=== PATIENT | female | born 1950 | race Caucasian/White ===

== ENCOUNTER → 2017-06-15 08:50 | Outpatient (CLI) | payer MEDICARE, OTHER ==
[2016-01-29 13:21] VITALS: BMI 49.9
[~2017-06-15 08:50] MED LIST: ACETAMINOPHEN500 M1 PO; ASPIRIN325 MG PO; BACTRIM DS TABL1 TAB PO; COUMADIN5 MG PO; CYMBALTA60 MG PO; DEMEROL50 MG PO; DIOVAN80 MG PO; EFFEXOR XR150 MG; EFFEXOR XR150 MG PO; FLAGYL500 MG PO; FLEXERIL10 MG PO; LASIX20 MG PO; LEVOTHROID25 MCG PO; MIRALAX17 GM PO; MULTI-DAY VITAM1 TAB PO; MYRBETRIQ; NEURONTIN 300300 MG PO; NORCO 10/325 TA1 TA1 PO; OXYCONTIN20 MG PO; PERCOCET 10/3251 TA1 PO; PHENERGAN25 M1 PO; PLAVIX75 MG PO; PRAVACHOL40 MG PO; PRILOSEC20 MG PO; PRINIVIL10 MG PO; TYLENOL 8 HOUR650 MG PO; VESICARE10 MG; VESICARE10 MG PO; ZOFRAN4 MG PO
== END | disposition home or self-care (01) ==
LOC: D.MRI 08:50
DX: M54.16 Radiculopathy, lumbar region (principal)

== ENCOUNTER 2017-12-09 10:35 | Outpatient (CLI) | payer MEDICARE, OTHER ==
[~2017-12-09] VITALS: Ht 162.6 cm; Wt 136.4 kg
--- NOTE | ~2017-12-09 | OP ---
PATIENT NAME: AGNES VALENTINE MEDICAL RECORD: [id number] :46 LOCATION:D.CAT ADMISSION DATE: SURGEON: DEMETRI CARRERA MD DATE OF OPERATION: 12/09/2017 PROCEDURE: Left heart catheterization, selective coronary angiography, stenting to the LAD, right femoral artery approach. CATHETERS: A 5-Yemeni sheath, 5/4 left and right Missael, 5/4 pig. The procedure was well tolerated. The patient returned to the armijo. Sheath removed. We proceeded immediately to PTCA stenting of the LAD. FINDINGS: Left ventriculography in the 30-degree HAYES view: Normal wall motion, normal systolic function. CORONARY ANATOMY. LEFT MAIN: Left main is free of disease. LAD: LAD distal to the previously placed stent has 2 sequential 90% stenosis. CIRCUMFLEX: Circumflex is free of disease. RIGHT CORONARY ARTERY: Right dominant system free of disease. IMPRESSION: Progression of [place] disease. PLAN: Intervention to the LAD momentarily. DESCRIPTION OF PROCEDURE: A 5-Yemeni sheath was exchanged for a 6-Yemeni sheath. EBU 3.5 guiding catheter provided good guide support followed by a 300 cm Whisper wire was placed across both stenosis in the LAD down this portion of vessel. Stent deployed was a 2.5 x 33 mm near medicated stent inflated to 14 atmospheres. Final angiography shows excellent resolution of both 90% stenosis, no significant residual. BEN flow was 3 throughout the procedure. Integrilin was used in the case. Sheath was closed. ExoSeal device was placed. TRANSINT:[id number] Voice Confirmation ID: [id number] DOCUMENT ID: [id number] DEMETRI CARRERA MD at 1214 CC: [id number] DICTATION DATE: 12/09/17 1343 ENVIRONMENTAL REMEDIATION SPECIALIST: 12/09/17 1359 DEP CLI 12/09/17 [place] [address]
--- NOTE | ~2017-12-09 | HEMODYNAMI ---
PATIENT:AGNES VALENTINE MEDICAL RECORD: [id number] : 46 LOCATION:DJUD ADMISSION DATE: 12/09/17 Generatedon:12/09/201713:44 Patient name: AGNES VALENTINE Patient #: [id number] SSN: : 1950 Date of study: 12/09/2017 Page: Of Hemodynamic Procedure Report Patient Data Patient Demographics Procedure consent was obtained First Name: AGNES Gender: Female Last Name: MEME : 1950 Middle Initial: BRAEDEN Age: 67 year(s) Patient #: [id number] Race: Additional ID: [id number] Contact details Address: [address] [place] [place] [facility] Zip code: [address] Past Medical History Allergies Allergen Reaction Date Comments Reported Other allergy 12/09/2017 STERI STRIP GLUE Admission Admission Data Admission Date: 12/09/2017 Admission Time: 10:35 Height (in.): 5.4 BSA: 0.39 (m2) Height (cm.): 13.72 BMI: 7329.67 (kg/m2) Weight (lbs.): 304 Weight (kg.): 137.89 Lab Results Lab Result Date: 12/09/2017 Lab Result Time: 0:00 Biochemistry Name Units Result Min Max BUN mg/dl 15 --(--*-)-- 7 18 Creatinine mg/dl 0.8 --(-*--)-- 0.6 1.3 CBC Name Units Result Min Max Hemoglobin g/dl 9.9 *-(----)-- 13.5 17.5 Procedure Procedure Types Cath Procedure Diagnostic Procedure [facility] w/Coronaries Sedation Charges Moderate Sedation up to 15 minutes PCI Procedure Coronary Stent Coronary Stent Initial Procedure Description Procedure Date Procedure Date: 12/09/2017 Procedure Start Time: 13:20 Procedure End Time: 13:42 Procedure Staff Name Function Ned Claudio MD Performing Physician Joelle Pinto RT Monitor Janes Cano RT Scrub Colleen Owen RN Nurse Procedure Data Cath Procedure Fluoroscopy Diagnostic fluoroscopy Total fluoroscopy Time: 2.5 time: 2.5 min min Diagnostic fluoroscopy Total fluoroscopy dose: 399 dose: 399 mGy mGy Contrast Material Contrast Material Type Amount (ml) Isovue 300 113 Entry Location Entry Primary Successful Side Size Upsize Upsize Entry Closure Succes sful Closure Location (Fr) 1 (Fr) 2 (Fr) Remarks Device Remarks Femoral Right 5 Fr 6 Fr Exoseal artery Short Estimated blood loss: 10 ml Diagnostic catheters Device Type Used For End Catheter Placement MULTIPACK JL 4.0 5Fr Procedure catheter MULTIPACK 3DRC 5Fr Procedure catheter MULTIPACK Pigtail 5 Fr Procedure catheter Procedure Complications No complications Procedure Medications Medication Administration Route Dosage Oxygen NC 2 l/min Lidocaine 2% added to field 20 Heparin Flush Bag added to field 2 bags (1000units/500ml NS) 0.9% NaCl I.V. 100 ml/hr Versed I.V. 2 mg Fentanyl I.V. 100 mcg Heparin Bolus I.V. 5000 units Integrilin (Bolus I.V. 11.3 ml 2mg/ml) Versed I.V. 1 mg Fentanyl I.V. 50 mcg Versed I.V. 1 mg Fentanyl I.V. 50 mcg Plavix P.O. 600 mg Hemodynamics Rest BSA: 0.39 (m2) HGB: 9.9 (g/dl) O2 Consumption: Estimated: 36.89 (ml/min) O2 Cons umption indexed: Estimated:94.59 (ml/min/m) Heart Rate: 76 (bpm) Pressure Samples Time Site Value (mmHg) Purpose Heart Use Rate(bpm) 13:26 LV 105/15,17 Snapshot 87 13:27 AO 121/48(76) Pullback 88 13:27 LV 96/18,12 Pullback 88 Gradients Valve Time Site 1 Site 2 Mean SEP/DFP Peak To Heart Use (mmHg) (sec/min) Peak Rate (mmHg) (bpm) Aortic 13:27 LV AO 0 18 0 88 96/18,12 121/48(76) Calculations Valve P-P Mean Valve Index Valve Source Name Gradient Area Flow (cm2) Aortic 0 0 0 0 Snapshots Pre Cath Intra NCS Post Cath Vital Signs Time Heart Resp SPO2 etCO2 NIBP (mmHg) Rhythm Pain Sedation Rate (ipm) (%) (mmHg) Status Level (bpm) 13:03:57 76 17 97 38.9 179/92(110) NSR 0 (11) 10(A) , No pain 13:08:21 87 25 94 24.6 107/85(96) NSR 0 (11) 10(A) , No pain 13:12:23 80 16 100 0 126/78(108) NSR 0 (11) 10(A) , No pain 13:16:31 83 14 100 30.6 140/80(104) NSR 0 (11) 9(A) , No pain 13:20:45 88 16 100 31.3 130/80(104) NSR 0 (11) 9(A) , No pain 13:24:53 82 14 99 1.4 116/67(90) NSR 0 (11) 9(A) , No pain 13:29:03 90 14 99 43.3 115/66(94) NSR 0 (11) 9(A) , No pain 13:33:13 89 14 100 42.6 117/64(88) NSR 0 (11) 10(A) , No pain 13:37:16 90 15 100 43.3 134/80(103) NSR 0 (11) 10(A) , No pain 13:41:26 91 16 100 0 151/84(106) NSR 0 (11) 10(A) , No pain Medications Time Medication Route Dose Verified Delivered Reason Notes Effectiveness by by 13:09:17 Oxygen NC 2 Ned Heatherie used for l/min [facility] Efrain borden MD 13:09:34 Lidocaine 2% added 20ml Ned Portilloory for local to vial [facility] anesthetic field MD MORALEZ 13:09:39 Heparin Flush added 2 Ned Ned used for Bag to bags [facility] procedure (1000units/500ml field MD MORALEZ NS) 13:09:50 0.9% NaCl I.V. 100 Ned Macias Per physician ml/hr St Efrain Owen RN, MD 13:10:00 Versed I.V. 2 mg Ned Heatherie for sedation St Efrain Owen RN, MD 13:10:11 Fentanyl I.V. 100 Ned Heatherie for sedation mcg St Efrain Owen RN, MD 13:20:18 Versed I.V. 1 mg Ned Romeroie for sedation St Efrain Owen RN, MD 13:20:23 Fentanyl I.V. 50 Ned Romeroie for sedation mcg St Efrain Owen RN, MD 13:28:24 Heparin Bolus I.V. 5000 Ned Macias for verifi ed units St Efrain Owen RN anticoagulation with dr MD inman 13:30:34 Integrilin I.V. 11.3 Ned Macias for wasted (Bolus 2mg/ml) ml St Efrain Owen RN antiplatelet 8.7 ml therapy of vial 13:35:37 Versed I.V. 1 mg Ned Macias for sedation St Efrain Owen RN, MD 13:35:41 Fentanyl I.V. 50 Ned Macias for sedation mcg St Efrain Owen RN, MD 13:39:28 Plavix P.O. 600 Ned Mac[address] for mg [facility] Efrain Owen RN antiplatelet therapy Procedure Log Time Note 12:36:02 Signed procedure consent form obtained from patient. 12:38:59 H&P Date Dictated: 12/03/2017 Within 30 days and on chart., H&P Addendum completed by physician on day of procedure. (MUST COMPLETE FOR ALL OUTPATIENTS). 12:39:11 Patient Height : 5.4 inches 12:39:16 Patient Weight : 304 lbs 12:41:42 Lab Result : Creatinine 0.8 mg/dl 12:41:42 Lab Result : BUN 15 mg/dl 12:41:42 Lab Result : Hemoglobin 9.9 g/dl 12:46:39 Joelle Pinto RT(R) sent for patient. Start room use. 12:53:36 Time tracking: Regular hours 12:53:40 Plan of Care:Hemodynamics will remain stable., Cardiac rhythm will remain stable., Comfort level will be maintained., Respiratory function will remain adequate., Patient/ family verbilizes understanding of procedure., Procedure tolerated without complication., Recovers from procedure without complications.. 12:53:46 Patient received from Pre/Post Procedure Room to [facility] 3 Alert and oriented. Tansferred to table in Supine position. 12:53:47 Warm blankets applied, and ricardo hugger turned on for patient comfort. 12:53:48 Correct patient and procedure confirmed by team. 12:53:48 ECG and BP/O2 sat monitors applied to patient. 13:02:49 Vital chart was started 13:02:50 Baseline sample Acquired. 13:02:54 Rhythm: sinus rhythm 13:02:55 Full Disclosure recording started 13:02:55 Pre-procedure instructions explained to patient. 13:02:56 Pre-op teaching completed and patient verbalized understanding. 13:02:57 Family in patients room. 13:02:59 Patient NPO since Midnight. 13:03:11 Patient allergic to Other allergySTERI STRIP GLUE 13:03:13 Is the patient allergic to Iodine/contrast media? No. 13:03:16 Is patient on blood thinner?No 13:03:18 Patient diabetic? No. 13:03:20 Patient not . Patient is over age 55. 13:03:25 Previous problem with sedation/anesthesia? No ? 13:03:27 Snore? Yes 13:03:28 Sleep apnea? No 13:03:29 Deviated septum? No 13:03:37 Opens mouth fully? Yes 13:03:38 Sticks out tongue? Yes 13:03:39 Airway obstruction? No ? 13:03:41 Dentures? No ? 13:03:44 Pre procedure: right dorsailis pedis pulse 2+ Normal; easily identifiable; not easily obliterated 13:03:52 Patient pain scale 2/10 ?. 13:03:58 IV patent on arrival in left hand with 0.9% NaCl at O. 13:04:02 Lab results completed and on chart. 13:04:06 Right groin area was prepped with chlora-prep and draped in sterile fashion 13:04:07 Alarms reviewed by R. N. 13:04:08 Sharps counted by scrub and verified by R.N. 13:04:09 --------ALL STOP TIME OUT------ 13:04:09 Final Timeout: patient, procedure, and site verified with staff and physician. All members of the team are in agreement. 13:04:15 Right groin site verified by team. 13:04:19 Physical assessment completed. ASA score P 2 - A patient with mild systemic disease as per Ned Claudio MD. 13:04:24 Sedation plan: IV Moderate Sedation Medication:Versed, Fentanyl 13:04:31 Use device set Femoral Dx 13:04:32 ACIST Syringe (51624) opened to sterile field. 13:04:33 Bag Decanter (2001S) opened to sterile field. 13:04:34 ACIST Manifold (06748) opened to sterile field. 13:04:35 ACIST Hand Control (87458) opened to sterile field. 13:04:36 Tegaderm 4 x 4 (1626W) opened to sterile field. 13:04:39 Medline Cath Pack ([id number]) opened to sterile field. 13:04:39 SHEATH 5FR Andale (DEY895) opened to sterile field. 13:04:40 DIAGNOSTIC WIRE .035 260cm J wire (826526) opened to sterile field. 13:04:42 PERCUTANEOUS ENTRY 19GA needle opened to sterile field. 13:04:43 DIAGNOSTIC Multipack 5Fr catheter set (CD3376) opened to sterile field. 13:09:17 Oxygen 2 l/min NC was administered by Colleen Owen RN; used for procedure; 13::34 Lidocaine 2% 20ml vial added to field was administered by Ned Claudio MD; for local anesthetic; 13:09:39 Heparin Flush Bag (1000units/500ml NS) 2 bags added to field was administered by Ned Claudio MD; used for procedure; 13:09:50 0.9% NaCl 100 ml/hr I.V. was administered by Colleen Owen RN; Per physician; 13:10:00 Versed 2 mg I.V. was administered by Colleen Owen RN; for sedation; 13:10:11 Fentanyl 100 mcg I.V. was administered by Colleen Owen RN; for sedation; 13:12:29 Zero performed for pressure channel P1 13:19:37 Procedure started. 13:20:05 Local anesthetic to right femoral artery with Lidocaine 2% by Ned Claudio MD.INITIAL ACCESS ONLY 13:20:18 Versed 1 mg I.V. was administered by Colleen Owen RN; for sedation; 13:20:23 Fentanyl 50 mcg I.V. was administered by Colleen Owen RN; for sedation; 13:21:43 A 5 Fr sheath was inserted into the Right Femoral artery 13:22:18 A MULTIPACK JL 4.0 5Fr catheter was advanced over the wire and used for Procedure. 13:23:47 LCA angiography performed. 13:23:48 Catheter removed. 13:24:03 A MULTIPACK 3DRC 5Fr catheter was advanced over the wire and used for Procedure. 13:25:01 RCA angiography performed. 13:25:07 Catheter removed. 13:25:15 A MULTIPACK Pigtail 5 Fr catheter was advanced over the wire and used for Procedure. 13::57 LV gram done using HAYES 13::03 Injector settings: Ml/sec: 10, Volume: 20, 13::38 LV hemodynamics recorded. 13::49 EF : 55 % 13::52 Catheter removed. 13:27:17 SHEATH 6FR Andale (VTL999) opened to sterile field. 13:27:21 INFLATOR Merit BasixCompak (MV6396) opened to sterile field. 13:27:29 WHISPER 300cm guide wire ([id number]) opened to sterile field. 13:27:46 Sheath upsized to a 6 Fr Short. 13:28:24 Heparin Bolus 5000 units I.V. was administered by Colleen Owen RN; for anticoagulation; verified with dr inman 13::25 GUIDE 6FR EBU 3.5 catheter ([id number]) opened to sterile field. 13:28:25 6 Fr EBU 3.5 guide catheter was inserted over the wire 13:30:34 Integrilin (Bolus 2mg/ml) 11.3 ml I.V. was administered by Colleen Owen RN; for antiplatelet therapy; wasted 8.7 ml of vial 13:31:17 WHISPER 300 wire advanced. 13:: Inflation Number: 1 A ELUNIR 2.5 x 33 stent ([id number]) was prepped and advanced across the Mid LAD. The stent was deployed at 12 NELLY for 0:30 (min:sec). 13:35:37 Versed 1 mg I.V. was administered by Colleen Owen RN; for sedation; ::41 Fentanyl 50 mcg I.V. was administered by Colleen Owen RN; for sedation; 13:35:49 Stent catheter was removed intact over wire. 13:35:50 Wire removed. 13:35:50 Guide catheter removed. 13:36:09 EXOSEAL 6Fr (EX600) opened to sterile field. 13:36:27 Sheath removed intact; hemostasis achieved with Exoseal to the Right Femoral artery. 13:37:23 Procedure ended.(Physican Out) :37:27 Fluoroscopy time 02.50 minutes. 13:37:34 Flurop Dose total: 399 13:37:34 Fluoroscopy dose: 399 mGy 13:37:41 Contrast amount:Isovue 300 113ml. 13:37:43 Sharps counted by scrub and verified by R.N. 13:38:39 Insertion/operative site no bleeding no hematoma. 13:38:43 Post procedure: right dorsailis pedis pulse 2+ Normal; easily identifiable; not easily obliterated. 13:38:45 Post-procedure physical assessment completed. ASA score P 2 - A patient with mild systemic disease as per Ned Claudio MD. 13:38:53 Post procedure rhythm: unchanged. 13:38:55 Estimated blood loss: 10 ml 13:38:56 Post procedure instruction explained to patient.Patient verbalizes understanding. 13:38:57 Patient needs reinforcement of post procedure teaching. 13:39:06 Procedure type changed to Cath procedure, Diagnostic procedure, LHC, LHC w/Coronaries, Sedation Charges, Moderate Sedation up to 15 minutes, PCI procedure, Coronary Stent, Coronary Stent Initial 13:39:28 Plavix 600 mg P.O. was administered by Colleen Owen RN; for antiplatelet therapy; 13:42:37 Procedure and supply charges have been captured, reviewed, submitted and are correct. 13:42:40 Procedure Complication : No complications 13:42:41 Vital chart was stopped 13:42:42 See physician's report for complete and final results. 13:42:46 Report given to Pre/Post Procedure Room. 13:42:49 Patient transfered to Pre/Post Procedure Room with Bed. 13:42:52 Procedure ended. 13:42:52 Full Disclosure recording stopped 13:42:55 End room use (Document Last) Intervention Summary Intervention Notes Time ActionType Lesion and Equipment Action# Pressure Duration Attributes Used 13:35:27 Place stent Mid LAD ELUNIR 2.5 x 1 12 00:30 33 stent ([id number]) Device Usage Item Name Manufacture Quantity Catalog Hospital Part Current Minim al Lot# / Number Charge Number Stock Stock Serial# Code ACIST Syringe Acist 1 42635 639719 922227 414844 20 (75223) Medical Systems Inc Bag Decanter Microtek 1 2001S 287982 73899 746324 5 () Medical Inc. ACIST Acist 1 00717 026520 695243 309998 5 Manifold Medical (37155) Systems Inc ACIST Hand Acist 1 80438 032376 917724 446623 5 Control Medical (07662) Systems Inc Tegaderm 4 x 3M 1 1626W 375446 015820 024276 5 4 (1626W) Medline Cath Cardinal 1 [id number] 323961 81624 960110 5 Pack Health ([id number]) SHEATH 5FR Terumo 1 RSO631 453177 232724 975411 40 Andale (VPM247) DIAGNOSTIC St Shon 1 929150 301916 971505 939830 30 WIRE .035 260cm J wire (820971) PERCUTANEOUS [facility] 1 H28624 368859 337128 5 ENTRY 19GA needle DIAGNOSTIC Cardinal 1 XG9859 319042 77966 502034 30 Multipack 5Fr Health catheter set (PP8381) MULTIPACK JL Cardinal 1 251288 5 4.0 5Fr Health catheter MULTIPACK Cardinal 1 568355 5 3DRC 5Fr Health catheter MULTIPACK Cardinal 1 687738 5 Pigtail 5 Fr Health catheter SHEATH 6FR Terumo 1 CFW457 479878 042752 766936 40 Andale (EPM225) INFLATOR Merit 1 RV0229 635592 777846 939839 [address] [facility] BasixCompak (WW7422) WHISPER 300cm Cat 1 [id number] 652098 778381 563428 5 guide wire Vascular ([id number]) ELUNIR 2.5 x Cardinal 1 [id number] 745152 596186 877815 5 [id number] 33 stent Health ([id number]) EXOSEAL 6Fr Cardinal 1 EX600 969487 863352 038996 10 (EX600) Health GUIDE 6FR EBU Medtronic 1 [id number] 549345 82087 651952 3 3.5 catheter (BR9QUC88) Signature Audit [place] Stage Time Signature Unsigned Intra-Procedure 12/09/2017 Joelle Pinto 1:44:51 PM RT(R) Signatures Monitor : Joelle Pinto Signature : RT Date : Time : [facility] [address] [place] [address]
[2017-12-09] MEDS ORDERED: TEMAZEPAM30 MG PO (11:01)
[2017-12-09] MEDS ORDERED: HYDROCODONE-APA1 TAB PO (11:09)
[2017-12-09 11:11] VITALS: Ht 162.6 cm; Wt 136.4 kg
[2017-12-09 11:38] LABS: BASOPHILS 0.1 % (0-2); EOSINOPHILS 2.8 % (0-7); HEMATOCRIT 33.7 % (36.0-48.0); HEMOGLOBIN 9.9 g/dL (12-16); IMMATURE GRANULOCYTES 0.1 % (0-5); LYMPHOCYTES 32.4 % (15-50); MCH 23.9 pg (26.0-34.0); MCHC 29.4 g/dL (31.0-37.0); MCV 81.2 fL (80.0-100.0); MEAN PLATELET VOLUME 9.6 fL (7.4-10.4); MONOCYTES 9.4 % (2-11); NEUTROPHILS 55.2 % (40-80); RBC 4.15 10x6/uL (4.00-5.40); RDW 15.3 % (11.5-14.5); WBC 6.9 10x3/uL (4.8-10.8)
[2017-12-09 11:41] LABS: PLATELET COUNT 280 10x3/uL (130-400)
[2017-12-09 11:50] LABS: CALC OSMOLALITY 279 mosm/kg (275-300); CALCIUM 9.2 mg/dL (8.5-10.1); CARBON DIOXIDE 27.3 mmol/L (21.0-32.0); CHLORIDE - SERUM 104 mmol/L (98-107); CREATININE - SERUM 0.8 mg/dL (0.6-1.3); GLUCOSE 101 mg/dL (74-106); POTASSIUM - SERUM 4.4 mmol/L (3.5-5.1); SODIUM 140 mmol/L (136-145); UREA NITROGEN 15 mg/dL (7-18); eGFR NON AFRICAN AMERICAN 75 mL/min (90-120)
[2017-12-09] MEDS ORDERED: PLAVIX75 MG PO (14:25)
[2017-12-09] MEDS ORDERED: BAYER CHEWABLE81 MG PO (14:26)
== END 2017-12-09 18:00 | disposition home or self-care (01) ==
LOC: D.CATH 10:35
PROVIDERS: Internal Medicine Interventional Cardiology
DX: I25.119 Atherosclerotic heart disease of native coronary artery with unspecified angina pectoris (principal); Z01.812 Encounter for preprocedural laboratory examination
CPT/HCPCS: 93458; C9600

== ENCOUNTER 2018-12-07 15:19 | Inpatient (IN) | payer MEDICARE, OTHER ==
[~2018-12-07] VITALS: Ht 162.6 cm; Wt 128.8 kg
[~2018-12-07 15:19] MED LIST changes: +BAYER CHEWABLE81 MG PO; +HYDROCODONE-APA1 TAB PO; +TEMAZEPAM30 MG PO
[2018-12-07] MEDS ORDERED: DESMOPRESSIN A0.2 MG PO (16:02)
[2018-12-07] MEDS ORDERED: VOLTAREN100 GM TOPICAL (16:03)
[2018-12-07] MEDS ORDERED: CYMBALTA60 MG PO (16:07)
[2018-12-07 16:36] LABS: BASOPHILS 0.3 % (0-2); EOSINOPHILS 1.8 % (0-7); HEMATOCRIT 38.9 % (36.0-48.0); HEMOGLOBIN 12.7 g/dL (12-16); IMMATURE GRANULOCYTES 0.1 % (0-5); MCH 29.1 pg (26.0-34.0); MCHC 32.6 g/dL (31.0-37.0); MCV 89.2 fL (80.0-100.0); MEAN PLATELET VOLUME 9.2 fL (7.4-10.4); MONOCYTES 6.8 % (2-11); RBC 4.36 10x6/uL (4.00-5.40); RDW 13.9 % (11.5-14.5)
[2018-12-07 16:41] LABS: PLATELET COUNT 198 10x3/uL (130-400)
[2018-12-07 16:45] LABS: ANION GAP 14.9 mmol/L (8-16); CALCIUM 9.3 mg/dL (8.5-10.1); CARBON DIOXIDE 26.5 mmol/L (21.0-32.0); CREATININE - SERUM 0.9 mg/dL (0.6-1.3); POTASSIUM - SERUM 4.4 mmol/L (3.5-5.1)
[2018-12-07 17:50] LABS: ERYTHROCYTE SEDIMENTATION RATE 30 mm/hr (0-30)
--- NOTE | 2018-12-07 18:38 | NUR ---
20G PIV SITED TO RIGHT FOREARM BY YOLANDA MAYS AFTER 2 ATTEMPTS BY OTHER NURSES.
[2018-12-07 18:53] VITALS: BP 122/56; BMI 48.8
--- NOTE | 2018-12-07 20:30 | NUR ---
PT RESTING IN BED. ALERT AND ORIENTED. NO SIGNS OF DISTRESS. BREATHING EVEN AND UNLABORED. PT STATES NO PROBLEMS AT THIS TIME. IV SITE RT FA DRESSING CLEAN DRY AND ITNACT. NO SIGNS OF INFECTION. BOWEL SOUNDS ACTIVE. BOTH LOWER LEGS SWELLING PRESENT. WILL CONTINUE PLAN OF CARE. CALL LIGHT IN REACH. BED LOWERED AND LOCKED. BED RAILS UP X2.
[2018-12-07 20:54] VITALS: BP 122/53
[2018-12-08 05:01] VITALS: BP 125/63
--- NOTE | 2018-12-08 05:28 | NUR ---
PT IN BED IN LOW FOWLERS POSIITON. RESPIRATIONS EVEN AND UNLABORED NO VISUAL CUES OF DISTRESS NOTED. DENIES ANY OTHER NEEDS AT THIS TIME. BED LOW, SIDE RAILS UP X2. CALL LIGHTI IN [facility]. WILL CONTINUE TO MONITOR.
[2018-12-08 08:18] VITALS: BP 137/65
[2018-12-08 09:31] LABS: BASOPHILS 0.2 % (0-2); EOSINOPHILS 1.5 % (0-7); HEMATOCRIT 38.1 % (36.0-48.0); LYMPHOCYTES 30.1 % (15-50); MCH 28.6 pg (26.0-34.0); MCHC 31.5 g/dL (31.0-37.0); MCV 90.7 fL (80.0-100.0); MEAN PLATELET VOLUME 9.5 fL (7.4-10.4); MONOCYTES 8.3 % (2-11); NEUTROPHILS 59.9 % (40-80); PLATELET COUNT 195 10x3/uL (130-400); RDW 14.2 % (11.5-14.5)
[2018-12-08 09:39] LABS: WBC 4.8 10x3/uL (4.8-10.8)
[2018-12-08 09:52] LABS: CALC OSMOLALITY 267 mosm/kg (275-300); CARBON DIOXIDE 25.7 mmol/L (21.0-32.0); CHLORIDE - SERUM 100 mmol/L (98-107); CREATININE - SERUM 0.8 mg/dL (0.6-1.3); GLUCOSE 105 mg/dL (74-106); POTASSIUM - SERUM 4.2 mmol/L (3.5-5.1); SODIUM 134 mmol/L (136-145); UREA NITROGEN 12 mg/dL (7-18); eGFR NON AFRICAN AMERICAN 75 mL/min (90-120)
--- NOTE | 2018-12-08 12:13 | NUR ---
I have reviewed this patient and I concur with the Shift Assessment completed by the Licensed Practical Nurse today this shift.
[2018-12-08 12:19] VITALS: BP 123/67
[2018-12-08 12:34] VITALS: BMI 48.7
[2018-12-08 19:13] LABS: APPEARANCE CLEAR (CLEAR); BILIRUBIN NEGATIVE (NEGATIVE); COLOR YELLOW (YELLOW); GLUCOSE NEGATIVE (NEGATIVE); KETONE NEGATIVE (NEGATIVE); NITRITE NEGATIVE (NEGATIVE); PROTEIN NEGATIVE (NEGATIVE); UROBILINOGEN NORMAL (NORMAL)
--- NOTE | 2018-12-08 20:00 | NUR ---
ASSESSMENT PER FLOWSHEET. DRESG TO RT KNEE C/D/I LEFT KNEE WITH SORES AND SCABS NO DRAINAGE. IV PATENT RT FOREARM OF NS AT 10CC'S/HR. FAMILY MEMBERS AT BEDSIDE.
[2018-12-08 20:10] VITALS: BP 133/55
--- NOTE | 2018-12-08 21:45 | NUR ---
MEDS GIVEN PER NOV. UP WITH STANDBY ASSIST TO BR VOIDS WELL ASSISTED BACK TO BED. SR UP X2 CALL LIGHT WITHIN REACH MATT BED ALARM ACTIVATED.
--- NOTE | 2018-12-09 00:54 | NUR ---
EYES CLOSED RESPIRATIONS WITH EASE AND UNLABORED.
[2018-12-09 04:45] VITALS: BP 109/60
[2018-12-09 05:21] LABS: BASOPHILS 0.2 % (0-2); EOSINOPHILS 2.1 % (0-7); HEMATOCRIT 38.6 % (36.0-48.0); HEMOGLOBIN 12.2 g/dL (12-16); LYMPHOCYTES 24.7 % (15-50); MCH 28.4 pg (26.0-34.0); MCHC 31.6 g/dL (31.0-37.0); MEAN PLATELET VOLUME 9.2 fL (7.4-10.4); MONOCYTES 8.8 % (2-11); NEUTROPHILS 64.2 % (40-80); PLATELET COUNT 175 10x3/uL (130-400); RBC 4.29 10x6/uL (4.00-5.40); RDW 14.2 % (11.5-14.5); WBC 4.2 10x3/uL (4.8-10.8)
[2018-12-09 05:30] LABS: ANION GAP 11.4 mmol/L (8-16); CARBON DIOXIDE 30.5 mmol/L (21.0-32.0); CREATININE - SERUM 0.9 mg/dL (0.6-1.3); POTASSIUM - SERUM 3.9 mmol/L (3.5-5.1)
--- NOTE | 2018-12-09 07:25 | NUR ---
PT ALERT AND ORIENTED. RESTING IN BED EYES OPEN. NO C/O PAIN. NO S/S OF ACUTE DISTRESS NOTED. UP AD ZHANG. DRSG TO RIGHT KNEE, C/D/I. FALL PRECAUTION, MATT ALARM ON AND WORKING. SCDS PRESENT, OFF RIGHT NOW. IV TO RIGHT FOREARM, NS INFUSING @ 20ML/HR. SITE PATENT WITHOUT REDNESS OR SWELLING. PT DENIES ANYTHING FURTHER AT THIS TIME. CALL LIGHT IN REACH. WILL CONTINUE TO MONITOR.
[2018-12-09 09:23] VITALS: BP 122/52
[2018-12-09 10:41] LABS: MACROPHAGES BF 10 %; NEUT - BF 86 %
[2018-12-09 11:08] LABS: BASOPHILS 0.2 % (0-2); EOSINOPHILS 2.6 % (0-7); HEMATOCRIT 37.9 % (36.0-48.0); HEMOGLOBIN 12.1 g/dL (12-16); IMMATURE GRANULOCYTES 0.2 % (0-5); LYMPHOCYTES 18.9 % (15-50); MCH 28.8 pg (26.0-34.0); MCHC 31.9 g/dL (31.0-37.0); MCV 90.2 fL (80.0-100.0); MEAN PLATELET VOLUME 9.2 fL (7.4-10.4); MONOCYTES 10.4 % (2-11); NEUTROPHILS 67.7 % (40-80); PLATELET COUNT 178 10x3/uL (130-400); RDW 14.4 % (11.5-14.5); WBC 4.5 10x3/uL (4.8-10.8)
[2018-12-09 12:22] VITALS: BP 128/41
--- NOTE | 2018-12-09 14:26 | MORECARE ---
CASE MANAGEMENT DISCHARGE SUMMARY PATIENT: AGNES VALENTINE UNIT: [id number] ADM DATE: 12/08/18 AGE: 68 : 48 SEX: F ROOM/BED: D.2217 AUTHOR: KASHIF,DOC PHYSICIAN: REFERRING PHYSICIAN: SCOTTIE WRIGHT MD DATE OF SERVICE: 12/09/18 Discharge Plan Patient Name: AGNES VALENTINE Facility: [facility]:[place] : 1950 Planned Disposition: Home Anticipated Discharge Date: Discharge Date: Expected LOS: Initial Reviewer: [email or web address] Initial Review Date: 12/07/2018 Generated: 12/09/18 3:26 pm Comments DCP- Discharge Planning Updated by [email or web address]: Mirtha Powers on 12/09/18 1:[address] Patient Name: AGNES VALENTINE Admission Status: Elective Accout number: [id number] Admission Date: 12-08-2018 : 1950 Admission Diagnosis: Attending: SCOTTIE WRIGHT Current LOS: 1 Anticipated DC Date: Planned Disposition: Home Primary Insurance: MEDICARE A & B Discharge Planning Comments: CM met with patient to complete initial dc planning assessment. CM educated patient on the CM role and verbal consent given by patient to complete assessment. Patient lives at home where she is independent with her care . At discharge patient plans to return home and feels this is a safe discharge. 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 CM discussed availability of home health, rehab services, and medical equipment. She has a cane, multiple walkers, shower chair, and bedside commode. Patient denied known discharge needs at this time. CM will continue to follow and will assist as needed with dc plans/needs. Stable Helper: Mirtha Powers DCPIA - Discharge Planning Initial Assessment Updated by [email or web address]: Mirtha Powers on 12/09/18 2:18 pm * Is the patient Alert and Oriented? Yes * How many steps to enter\exit or inside your home? RAMP/6 * PCP KYLE * [facility] * Preadmission Environment Home Alone * ADLs Independent * Equipment Bedside Commode Cane Rolling Walker Shower Chair * List name and contact numbers for known caregivers / representatives who currently or will assist patient after discharge: TOSHIA VALENTINE (SON) [phone] * Verbal permission to speak to the caregivers and representatives has been obtained from the patient. Yes * Community resources currently utilized None * Additional services required to return to the preadmission environment? No * Can the patient safely return to the preadmission environment? Yes * Has this patient been hospitalized within the prior 30 days at any hospital? No Patient Name: AGNES VALENTINE Page [phone] at 1426 All edits/amendments must be made on the electronic document DICTATION DATE: 12/09/181425 EVENT MGR: ANNY 12/09/181425 RPT#: [id number] DC DATE: STATUS: ADM IN [facility] [address] [place] [address] END OF REPORT
[2018-12-09 15:40] LABS: ERYTHROCYTE SEDIMENTATION RATE 45 mm/hr (0-30)
[2018-12-09 17:53] VITALS: BP 106/66
--- NOTE | 2018-12-09 18:27 | NUR ---
I have reviewed this patient and I concur with the Shift Assessment completed by the Licensed Practical Nurse today this shift.
--- NOTE | 2018-12-09 18:28 | NUR ---
PT RESTING IN BED, EATING DINNER. NO C/O PAIN. NO S/S OF ACUTE DISTRESS NOTED. CALL LIGHT IN REACH. PT DENIES ANYTHING FURTHER AT THIS TIME. WILL CONTINUE TO MONITOR.
[2018-12-09 21:57] VITALS: BP 128/66
[2018-12-10] VITALS (7 sets, daily range): BP systolic 106–146; BP diastolic 37–83; Ht 162.6 cm; Wt 128.8 kg
[2018-12-10 04:08] LABS: ANION GAP 11.5 mmol/L (8-16); CALCIUM 8.5 mg/dL (8.5-10.1); CARBON DIOXIDE 29.1 mmol/L (21.0-32.0); CREATININE - SERUM 0.9 mg/dL (0.6-1.3); POTASSIUM - SERUM 3.6 mmol/L (3.5-5.1)
[2018-12-10 04:11] LABS: BASOPHILS 0.3 % (0-2); EOSINOPHILS 3.3 % (0-7); HEMATOCRIT 36.2 % (36.0-48.0); HEMOGLOBIN 11.7 g/dL (12-16); LYMPHOCYTES 29.3 % (15-50); MCH 28.7 pg (26.0-34.0); MCHC 32.3 g/dL (31.0-37.0); MCV 88.9 fL (80.0-100.0); MEAN PLATELET VOLUME 9.1 fL (7.4-10.4); MONOCYTES 9.3 % (2-11); NEUTROPHILS 57.8 % (40-80); PLATELET COUNT 169 10x3/uL (130-400); RBC 4.07 10x6/uL (4.00-5.40); RDW 14.2 % (11.5-14.5)
--- NOTE | 2018-12-10 07:32 | NUR ---
PT AWAKE AND ORIENTED. TALKING ON PHONE, VERY PLESANT. NO CONCNERS/COMPLAINTS/QUESTIONS VOICED AT THIS TIME. CL IN REACH. SRX2.
--- NOTE | 2018-12-10 18:47 | NUR ---
PT LYING IN BED, NO XOMPLAINTS OR CONCERNS VOICED AT THIS TIME. CL IN REACH. SRX2.
[2018-12-11 04:00] VITALS: BP 137/48
[2018-12-11 06:51] LABS: ANION GAP 14.7 mmol/L (8-16); CALCIUM 8.2 mg/dL (8.5-10.1); CARBON DIOXIDE 25.8 mmol/L (21.0-32.0); CREATININE - SERUM 0.9 mg/dL (0.6-1.3)
[2018-12-11 06:52] LABS: POTASSIUM - SERUM 4.5 mmol/L (3.5-5.1)
[2018-12-11 07:29] LABS: BASOPHILS 0.3 % (0-2); EOSINOPHILS 3.4 % (0-7); HEMATOCRIT 35.9 % (36.0-48.0); HEMOGLOBIN 11.4 g/dL (12-16); IMMATURE GRANULOCYTES 0.3 % (0-5); LYMPHOCYTES 24.6 % (15-50); MCH 28.5 pg (26.0-34.0); MCHC 31.8 g/dL (31.0-37.0); MCV 89.8 fL (80.0-100.0); MEAN PLATELET VOLUME 9.1 fL (7.4-10.4); NEUTROPHILS 61.4 % (40-80); PLATELET COUNT 152 10x3/uL (130-400); RDW 14.1 % (11.5-14.5); WBC 3.5 10x3/uL (4.8-10.8)
--- NOTE | 2018-12-11 07:46 | NUR ---
PT IS RESTING IN BED WITH EYES OPEN. RESPIRATIONS ARE EVEN AND UNLABORED. PT DENIES PRESENCE OF PAIN AT THIS TIME. PT DENIES PRESENCE OF N/V AT THIS TIME. RIGHT LOWER EXTREMITY DRESSING NOTED AND IS C/D/I. BED IS IN THE LOWEST POSITION. CALL LIGHT AND BEDSIDE TABLE ARE WITHIN REACH. WILL CONT TO MONITOR.
[2018-12-11 07:56] VITALS: BP 109/50
[2018-12-11 09:51] VITALS: BP 139/62
[2018-12-11 12:49] VITALS: BP 111/44
--- NOTE | 2018-12-11 14:35 | NUR ---
PT AMBULATES WITH WALKER 250 FT WITHOUT DIFFICULTY. PT DENIES PRESENCE OF SOB, DIZZINESS, LIGHTHEADEDNESS. PT ASSISTED WITH AMBULATION BY WALKER. PT REQUESTS TO SIT IN BEDSIDE CHAIR. PT IS ASSISTED TO BEDSIDE CHAIR POST AMBULATION. CALL LIGHT AND BEDSIDE TABLE ARE WITHIN REACH. PT DENIES PRESENCE OF PAIN. PT DENIES PRESENCE OF N/V AT THIS TIME. WILL CONT TO MONITOR.
[2018-12-11 16:17] VITALS: BP 119/59
--- NOTE | 2018-12-11 18:02 | NUR ---
PIV REMOVED FROM LEFT WRIST/FOREARM. PT C/O BURNING WITH INFUSION. REDNESS NOTED. PIV REMOVED WITH CATHETER TIP INTACT.
--- NOTE | 2018-12-11 20:00 | NUR ---
RESTING IN BED, NO APPARENT DISTRESS, NO IV ACCESS AT THIS TIME HAD MULTIPLE ATTEMPTS, AWAITING VASCULAR ACCESS NURSE, CALL LIGHT IN REACH
[2018-12-11 20:02] VITALS: BP 122/35
[2018-12-12 00:49] VITALS: BP 146/59
--- NOTE | 2018-12-12 01:50 | NUR ---
IV ACCESS NURSE STARTED IV LEFT THUMB, VANCOMYCIN STARTED AT THIS TIMES PREVIOUS DOSE WAS NOT GIVEN DUE TO NO IV ACCESS
[2018-12-12 06:38] LABS: BASOPHILS 0.3 % (0-2); EOSINOPHILS 3.9 % (0-7); HEMATOCRIT 36.2 % (36.0-48.0); HEMOGLOBIN 11.4 g/dL (12-16); IMMATURE GRANULOCYTES 0.3 % (0-5); LYMPHOCYTES 29.5 % (15-50); MCH 28.6 pg (26.0-34.0); MCHC 31.5 g/dL (31.0-37.0); MCV 90.7 fL (80.0-100.0); MEAN PLATELET VOLUME 9.7 fL (7.4-10.4); MONOCYTES 13.2 % (2-11); NEUTROPHILS 52.8 % (40-80); RBC 3.99 10x6/uL (4.00-5.40); RDW 14.2 % (11.5-14.5); WBC 3.6 10x3/uL (4.8-10.8)
[2018-12-12 06:44] LABS: ANION GAP 14.5 mmol/L (8-16); CALCIUM 8.4 mg/dL (8.5-10.1); CARBON DIOXIDE 24.4 mmol/L (21.0-32.0); CREATININE - SERUM 0.9 mg/dL (0.6-1.3); POTASSIUM - SERUM 3.9 mmol/L (3.5-5.1)
[2018-12-12 06:49] LABS: PLATELET COUNT 113 10x3/uL (130-400)
[2018-12-12 08:38] VITALS: BP 126/43
[2018-12-12 12:25] VITALS: BP 101/46
--- NOTE | 2018-12-12 13:19 | NUR ---
PT IS RESTING IN BED WITH EYES OPEN. RESPIRATIONS ARE EVEN AND UNLABORED. DRESSING TO RIGHT LOWER EXTREMITY NOTED AND IS C/D/I. PT REPORTS SLIGHT PAIN, BUT DENIES NEEDS AT THIS TIME. PT IS AAOX4. BED IS IN THE LOWEST POSITION. CALL LIGHT AND BEDSIDE TABLE ARE WITHIN REACH. WILL CONT TO MONITOR.
[2018-12-12 17:10] VITALS: BP 128/60
[2018-12-12 19:55] VITALS: BP 110/54
--- NOTE | 2018-12-12 20:00 | NUR ---
RESTIING IN BED AROUSED EASILY, SEE SHIFT ASSESSMENT, DENIES NEEDS AT THIS TIME, CALL LIGHT IN REACH
[2018-12-13 05:11] VITALS: BP 120/60
[2018-12-13 05:17] LABS: BASOPHILS 0.7 % (0-2); EOSINOPHILS 5.2 % (0-7); HEMATOCRIT 35.3 % (36.0-48.0); IMMATURE GRANULOCYTES 0.2 % (0-5); LYMPHOCYTES 32.4 % (15-50); MCH 28.3 pg (26.0-34.0); MCHC 31.2 g/dL (31.0-37.0); MCV 90.7 fL (80.0-100.0); MEAN PLATELET VOLUME 9.2 fL (7.4-10.4); MONOCYTES 10.4 % (2-11); NEUTROPHILS 51.1 % (40-80); RBC 3.89 10x6/uL (4.00-5.40); RDW 14.1 % (11.5-14.5); WBC 4.2 10x3/uL (4.8-10.8)
[2018-12-13 05:24] LABS: CALC OSMOLALITY 275 mosm/kg (275-300); CALCIUM 8.1 mg/dL (8.5-10.1); CARBON DIOXIDE 28.1 mmol/L (21.0-32.0); CHLORIDE - SERUM 103 mmol/L (98-107); CREATININE - SERUM 0.8 mg/dL (0.6-1.3); GLUCOSE 99 mg/dL (74-106); POTASSIUM - SERUM 3.8 mmol/L (3.5-5.1); SODIUM 138 mmol/L (136-145); UREA NITROGEN 13 mg/dL (7-18); eGFR NON AFRICAN AMERICAN 75 mL/min (90-120)
[2018-12-13 05:31] LABS: PLATELET COUNT 162 10x3/uL (130-400)
--- NOTE | 2018-12-13 08:00 | NUR ---
LYING IN BED,WITHOUT DISTRESS.CALL LIGHT IN REACH
[2018-12-13 08:44] VITALS: BP 133/64
--- NOTE | 2018-12-13 10:09 | NUR ---
PT LYING IN BED WITH SON AT BEDSIDE, STATED SHE HAD NOT GOTTEN UP IN DAYS AND HER LEGS ARE GETTING STIFF. STATED SHE DOES NOT WANT TO GET STUCK AGAIN THAT THEY HAVE TRIED SEVERAL TIMES LAST NIGHT AND DOES NOT WANT TO GET STUCK. PT HAS VANCOMYCIN DUE AT NOON AND HAS REFUSED. ADMINISTERED PRN PAIN MEDICATION, SON STATED WANTS TO TALK TO DR BECAUSE SHE CAN RECEIVE SAME ABX TREATMENT AT HOME. HAD EMPLOYMENT EDUCATIONAL COORD FOR DR ROSE PAGED IN REGARDS TO PT WISHES
[2018-12-13] MEDS ORDERED: FERROUS SULFAT325 MG PO (11:09)
[2018-12-13] MEDS ORDERED: SILVADENE20 GM TOPICAL (11:10)
[2018-12-13] MEDS ORDERED: KENALOG 0.1 % O15 GM TOPICAL (11:10)
--- NOTE | 2018-12-13 12:00 | MORECARE ---
CASE MANAGEMENT DISCHARGE SUMMARY PATIENT: AGNES VALENTINE UNIT: [id number] ADM DATE: 12/08/18 AGE: 68 : 46 SEX: F ROOM/BED: D.2217 AUTHOR: DUSTIN ROWLAND PHYSICIAN: REFERRING PHYSICIAN: SCOTTIE WRIGHT MD DATE OF SERVICE: 12/13/18 Discharge Plan Patient Name: AGNES VALENTINE Facility: [facility]:[place] : 1950 Planned Disposition: Home Anticipated Discharge Date: Discharge Date: Expected LOS: Initial Reviewer: [email or web address] Initial Review Date: 12/07/2018 Generated: 12/13/18 1:00 pm Comments DCP- Discharge Planning Updated by [email or web address]: Mirtha Powers on 12/13/18 10:[address] PATIENT DISCHARGING HOME TODAY, SHE DENIES ANY NEEDS. HER FAMILY WILL DRIVE HER HOME. IMM SERVED AND EXPLAINED CM TO FOLLOW AND ASSIST NEEDED DCP- Discharge Planning Updated by [email or web address]: Mirtha Powers on 12/09/18 1:[address] Patient Name: AGNES VALENTINE Admission Status: Elective Accout number: [id number] Admission Date: 12-08-2018 : 1950 Admission Diagnosis: Attending: SCOTTIE WRIGHT Current LOS: 1 Anticipated DC Date: Planned Disposition: Home Primary Insurance: MEDICARE A & B Discharge Planning Comments: CM met with patient to complete initial dc planning assessment. CM educated patient on the CM role and verbal consent given by patient to complete assessment. Patient lives at home where she is independent with her care . At discharge patient plans to return home and feels this is a safe discharge. Her son Toshia will be her winch driver home. CM discussed availability of home health, rehab services, and medical equipment. She has a cane, multiple walkers, shower chair, and bedside commode. Patient denied known discharge needs at this time. CM will continue to follow and will assist as needed with dc plans/needs. Manager People: Mirtha Powers DCPIA - Discharge Planning Initial Assessment Updated by [email or web address]: Mirtha Powers on 12/09/18 2:18 pm * Is the patient Alert and Oriented? Yes * How many steps to enter\exit or inside your home? RAMP/6 * PCP WRIGHT * [facility]acy [facility] * Preadmission Environment Home Alone * ADLs Independent * Equipment Bedside Commode Cane Rolling Walker Shower Chair * List name and contact numbers for known caregivers / representatives who currently or will assist patient after discharge: TOSHIA VALENTINE (SON) [phone] * Verbal permission to speak to the caregivers and representatives has been obtained from the patient. Yes * Community resources currently utilized None * Additional services required to return to the preadmission environment? No * Can the patient safely return to the preadmission environment? Yes * Has this patient been hospitalized within the prior 30 days at any hospital? No Coverage Notice Reviewer: [email or web address] Jerry Powers Notice Issued Date-Time: 12/13/2018 11:50 Notice Type: IM Discharge Notice Notice Delivered To: Patient Relationship to Patient: Retail Reset Merchandiser Name: Delivery Method: HAND - Hand Delivered Allison Days: Prior Verbal Notification: Recipient Understood Notice: Yes Recipient Signature: Yes Med Rec Note Co-signed by Attending: Coverage Notice Comment: Last DP export: 12/09/18 1:26 p Patient Name: AGNES VALENTINE Page [phone] at 1200 All edits/amendments must be made on the electronic document DICTATION DATE: 12/13/18 1159 DIVE MASTER: ANNY 12/13/18 1159 RPT#: [id number] DC DATE: STATUS: ADM IN [facility] [address] [place] [address] END OF REPORT
--- NOTE | 2018-12-13 13:20 | NUR ---
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 ADVISED PT MANY DC'S TODAY AND WERE DOING THEM IN ORDER, PT REQUESTED PAIN MEDICATION STATED DRIVE IS OVER AN HOUR AWAY. SON IS TAKING PT HOME. CONTINUE ALL QUESTIONS ANSWERED
== END 2018-12-13 13:31 | disposition home or self-care (01) | DRG 560 ==
LOC: D.MS 15:19 → OBSVTIME 15:20 → D.MS 12-08 18:55
PROVIDERS: Internal Medicine Nephrology; Orthopaedic Surgery; ADMIT Family Medicine; ATTEND Family Medicine
PROC: 0S9C3ZZ Drainage of Right Knee Joint, Percutaneous Approach (ICD-10-PCS; principal; 2018-12-09)
DX: T84.53XA Infection and inflammatory reaction due to internal right knee prosthesis, initial encounter (principal); L03.115 Cellulitis of right lower limb; Z68.43 Body mass index [BMI] 50.0-59.9, adult; I10 Essential (primary) hypertension; I25.10 Atherosclerotic heart disease of native coronary artery without angina pectoris; E66.01 Morbid (severe) obesity due to excess calories

== ENCOUNTER → 2018-12-29 10:42 | Outpatient (CLI) | payer MEDICARE, OTHER ==
[2018-12-10 14:50] VITALS: BMI 48.7
[~2018-12-29 10:42] MED LIST changes: +DESMOPRESSIN A0.2 MG PO; +FERROUS SULFAT325 MG PO; +KENALOG 0.1 % O15 GM TOPICAL; +SILVADENE20 GM TOPICAL; +VOLTAREN100 GM TOPICAL
[2018-12-29 11:19] LABS: BASOPHILS 0.2 % (0-2); EOSINOPHILS 2.4 % (0-7); HEMATOCRIT 39.4 % (36.0-48.0); HEMOGLOBIN 13.1 g/dL (12-16); IMMATURE GRANULOCYTES 0.2 % (0-5); LYMPHOCYTES 33.4 % (15-50); MCH 28.8 pg (26.0-34.0); MCHC 33.2 g/dL (31.0-37.0); MCV 86.6 fL (80.0-100.0); MEAN PLATELET VOLUME 9.1 fL (7.4-10.4); MONOCYTES 6.8 % (2-11); RBC 4.55 10x6/uL (4.00-5.40); RDW 13.4 % (11.5-14.5); WBC 5.9 10x3/uL (4.8-10.8)
[2018-12-29 11:20] LABS: PLATELET COUNT 228 10x3/uL (130-400)
[2018-12-29 11:33] LABS: ALBUMIN 3.5 g/dL (3.4-5.0); ALKALINE PHOSPHATASE 101 U/L (46-116); ALT (SGPT) 18 U/L (10-68); BILIRUBIN - TOTAL 0.22 mg/dL (0.2-1.3); C-REACTIVE PROTEIN 2.5 mg/dL (0.0-0.9); CALC OSMOLALITY 264 mosm/kg (275-300); CALCIUM 8.7 mg/dL (8.5-10.1); CARBON DIOXIDE 28.4 mmol/L (21.0-32.0); CHLORIDE - SERUM 96 mmol/L (98-107); CREATININE - SERUM 0.7 mg/dL (0.6-1.3); GLUCOSE 95 mg/dL (74-106); POTASSIUM - SERUM 4.8 mmol/L (3.5-5.1); PROTEIN - SERUM 7.7 g/dL (6.4-8.2); SODIUM 131 mmol/L (136-145); UREA NITROGEN 18 mg/dL (7-18); eGFR NON AFRICAN AMERICAN 88 mL/min (90-120)
[2018-12-29 12:35] LABS: ERYTHROCYTE SEDIMENTATION RATE 38 mm/hr (0-30)
== END | disposition home or self-care (01) ==
LOC: D.LAB 10:42
PROVIDERS: ATTEND Student in an Organized Health Care Education/Training Program
DX: Z79.899 Other long term (current) drug therapy (principal)

== ENCOUNTER 2019-01-22 17:31 | Emergency (ER) | payer MEDICARE, OTHER ==
[2019-01-22 17:32] VITALS: BMI 48.7
[2019-01-22 18:21] LABS: BASOPHILS 0.2 % (0-2); EOSINOPHILS 0.5 % (0-7); HEMATOCRIT 39.5 % (36.0-48.0); HEMOGLOBIN 12.9 g/dL (12-16); IMMATURE GRANULOCYTES 0.2 % (0-5); LYMPHOCYTES 7.8 % (15-50); MCH 28.9 pg (26.0-34.0); MCHC 32.7 g/dL (31.0-37.0); MCV 88.4 fL (80.0-100.0); MEAN PLATELET VOLUME 9.3 fL (7.4-10.4); MONOCYTES 4.2 % (2-11); NEUTROPHILS 87.1 % (40-80); RBC 4.47 10x6/uL (4.00-5.40); WBC 5.5 10x3/uL (4.8-10.8)
[2019-01-22 18:25] LABS: PLATELET COUNT 162 10x3/uL (130-400)
[2019-01-22 18:38] LABS: ALBUMIN 3.4 g/dL (3.4-5.0); ANION GAP 15.6 mmol/L (8-16); BILIRUBIN - TOTAL 0.37 mg/dL (0.2-1.3); CALCIUM 8.7 mg/dL (8.5-10.1); CARBON DIOXIDE 24.3 mmol/L (21.0-32.0); CREATININE - SERUM 0.9 mg/dL (0.6-1.3); POTASSIUM - SERUM 3.9 mmol/L (3.5-5.1); PROTEIN - SERUM 7.2 g/dL (6.4-8.2)
[2019-01-22 19:30] LABS: APPEARANCE CLEAR (CLEAR); BILIRUBIN NEGATIVE (NEGATIVE); COLOR YELLOW (YELLOW); GLUCOSE NEGATIVE (NEGATIVE); KETONE NEGATIVE (NEGATIVE); NITRITE NEGATIVE (NEGATIVE); PROTEIN NEGATIVE (NEGATIVE); SPECIFIC GRAVITY 1.015 (1.005-1.020); UROBILINOGEN NORMAL (NORMAL); WHITE CELLS - URINE 0-5 /hpf (0-5)
[2019-01-22 19:31] LABS: EPITHELIAL CELLS OCC /hpf (0-5); RED CELLS - URINE 0-5 /hpf (0-5)
[2019-01-22] MEDS ORDERED: ONDANSETRON8 MG/TAB PO (20:46)
[2019-01-22] MEDS ORDERED: LOMOTIL 2.5-0.1 EAC1 PO (20:46)
[2019-01-22] MEDS ORDERED: FLAGYL500 MG PO (20:53)
[2019-01-22] MEDS ORDERED: CIPRO500 MG PO (20:53)
[2019-01-22] MEDS ORDERED: DIFLUCAN100 MG PO (21:00)
[2019-01-22 22:08] VITALS: BP 128/89
== END 2019-01-22 22:02 | disposition home or self-care (01) ==
LOC: D.ER 17:31
PROVIDERS: Family Medicine
DX: T62.91XA Toxic effect of unspecified noxious substance eaten as food, accidental (unintentional), initial encounter (principal); Y92.511 Restaurant or cafe as the place of occurrence of the external cause; N39.0 Urinary tract infection, site not specified

== ENCOUNTER → 2019-02-11 14:09 | Outpatient (CLI) | payer MEDICARE, OTHER ==
[2019-01-22 17:32] VITALS: BMI 48.7
[~2019-02-11 14:09] MED LIST changes: +CIPRO500 MG PO; +DIFLUCAN100 MG PO; +LOMOTIL 2.5-0.1 EAC1 PO; +ONDANSETRON8 MG/TAB PO
== END | disposition home or self-care (01) ==
LOC: D.LABREF 14:09
PROVIDERS: ATTEND Urology
DX: R31.9 Hematuria, unspecified (principal)

== ENCOUNTER → 2019-02-25 16:12 | Outpatient (CLI) | payer MEDICARE, OTHER | END | disposition home or self-care (01) | LOC: D.LABREF 16:12 | PROVIDERS: ATTEND Urology | DX: N39.0 Urinary tract infection, site not specified (principal) ==

== ENCOUNTER 2019-06-22 12:38 | Observation (INO) | payer MEDICARE, OTHER ==
[~2019-06-22] VITALS: Ht 162.6 cm; Wt 125.0 kg
[2019-06-22 12:58] VITALS: BP 132/69
[2019-06-22 13:14] LABS: APPEARANCE CLEAR (CLEAR); BILIRUBIN NEGATIVE (NEGATIVE); COLOR YELLOW (YELLOW); GLUCOSE NEGATIVE (NEGATIVE); KETONE NEGATIVE (NEGATIVE); NITRITE NEGATIVE (NEGATIVE); PROTEIN NEGATIVE (NEGATIVE); UROBILINOGEN NORMAL (NORMAL)
[2019-06-22 13:51] LABS: APPEARANCE CLEAR (CLEAR); BILIRUBIN NEGATIVE (NEGATIVE); COLOR YELLOW (YELLOW); GLUCOSE NEGATIVE (NEGATIVE); KETONE NEGATIVE (NEGATIVE); NITRITE NEGATIVE (NEGATIVE); PROTEIN NEGATIVE (NEGATIVE); SPECIFIC GRAVITY 1.015 (1.005-1.020); UROBILINOGEN NORMAL (NORMAL)
[2019-06-22 13:54] VITALS: BP 99/60
[2019-06-22 13:59] LABS: UDS - AMPHET NEGATIVE QUAL (NEGATIVE); UDS - BARB NEGATIVE QUAL (NEGATIVE); UDS - BENZO NEGATIVE QUAL (NEGATIVE); UDS - COCAINE NEGATIVE QUAL (NEGATIVE); UDS - OPIATE NEGATIVE QUAL (NEGATIVE); UDS - PCP NEGATIVE QUAL (NEGATIVE); UDS - THC NEGATIVE QUAL (NEGATIVE)
[2019-06-22 14:24] LABS: BASOPHILS 0.1 % (0-2); EOSINOPHILS 0.6 % (0-7); HEMATOCRIT 39.5 % (36.0-48.0); HEMOGLOBIN 12.6 g/dL (12-16); IMMATURE GRANULOCYTES 0.4 % (0-5); LYMPHOCYTES 28.3 % (15-50); MCH 30.4 pg (26.0-34.0); MCHC 31.9 g/dL (31.0-37.0); MCV 95.2 fL (80.0-100.0); MEAN PLATELET VOLUME 10.1 fL (7.4-10.4); MONOCYTES 11.8 % (2-11); NEUTROPHILS 58.8 % (40-80); RBC 4.15 10x6/uL (4.00-5.40); RDW 13.3 % (11.5-14.5); WBC 11.2 10x3/uL (4.8-10.8)
[2019-06-22 14:25] LABS: PLATELET COUNT 302 10x3/uL (130-400)
[2019-06-22 14:36] LABS: APTT 23.3 SECONDS (22.8-39.4); INR 1.09 (0.85-1.17); PROTIME 13.6 SECONDS (11.6-15.0)
[2019-06-22 14:41] LABS: ALBUMIN 2.8 g/dL (3.4-5.0); ALKALINE PHOSPHATASE 100 U/L (46-116); ALT (SGPT) 19 U/L (10-68); BILIRUBIN - TOTAL 0.46 mg/dL (0.2-1.3); CALC OSMOLALITY 269 mosm/kg (275-300); CALCIUM 8.6 mg/dL (8.5-10.1); CARBON DIOXIDE 24.9 mmol/L (21.0-32.0); CHLORIDE - SERUM 98 mmol/L (98-107); GLUCOSE 111 mg/dL (74-106); POTASSIUM - SERUM 5.2 mmol/L (3.5-5.1); PROTEIN - SERUM 6.5 g/dL (6.4-8.2); SODIUM 133 mmol/L (136-145); UREA NITROGEN 22 mg/dL (7-18); eGFR NON AFRICAN AMERICAN 58 mL/min (90-120)
[2019-06-22 14:52] LABS: CKMB 0.7 U/L (0.0-3.6); CREATINE KINASE 70 UL (21-215); MAGNESIUM - SERUM 1.7 mg/dL (1.8-2.4); THYROID STIMULATING HORMONE 9.24 uIU/mL (0.36-3.74); TROPONIN-I < 0.017 ng/mL (0.000-0.060)
[2019-06-22 14:54] VITALS: BP 98/58
--- NOTE | 2019-06-22 15:18 | NUR ---
MANUAL BP = 118/72 L ARM
[2019-06-22 15:54] VITALS: BP 118/68
--- NOTE | 2019-06-22 17:57 | NUR ---
REPORT TO THANH ESPINOZA. ROOM NOT CLEAN. WILL LET US KNOW WHEN IT IS.
--- NOTE | 2019-06-22 18:16 | NUR ---
ns #1 stop time = 1523 ns #2 stop time = 1816
[2019-06-22 20:00] VITALS: BP 148/67
[2019-06-23] VITALS: BP 139/64
[2019-06-23 03:09] VITALS: BP 148/67; Ht 162.6 cm; Wt 125.0 kg
[2019-06-23 05:47] LABS: BASOPHILS 0.1 % (0-2); EOSINOPHILS 0.5 % (0-7); HEMATOCRIT 38.1 % (36.0-48.0); IMMATURE GRANULOCYTES 0.3 % (0-5); LYMPHOCYTES 22.3 % (15-50); MCH 29.8 pg (26.0-34.0); MCHC 31.5 g/dL (31.0-37.0); MCV 94.5 fL (80.0-100.0); MEAN PLATELET VOLUME 9.2 fL (7.4-10.4); MONOCYTES 10.1 % (2-11); NEUTROPHILS 66.7 % (40-80); PLATELET COUNT 298 10x3/uL (130-400); RBC 4.03 10x6/uL (4.00-5.40); RDW 13.5 % (11.5-14.5); WBC 9.6 10x3/uL (4.8-10.8)
[2019-06-23 06:07] LABS: ALBUMIN 2.6 g/dL (3.4-5.0); ANION GAP 15.6 mmol/L (8-16); BILIRUBIN - TOTAL 0.32 mg/dL (0.2-1.3); CALCIUM 8.4 mg/dL (8.5-10.1); CARBON DIOXIDE 25.1 mmol/L (21.0-32.0); CREATININE - SERUM 0.9 mg/dL (0.6-1.3); MAGNESIUM - SERUM 1.8 mg/dL (1.8-2.4); PHOSPHOROUS 3.5 mg/dL (2.5-4.9); POTASSIUM - SERUM 4.7 mmol/L (3.5-5.1); PROTEIN - SERUM 6.2 g/dL (6.4-8.2)
[2019-06-23 10:38] VITALS: BP 122/59
[2019-06-23 10:55] VITALS: BP 128/65
[2019-06-23 10:56] VITALS: BP 116/62
--- NOTE | 2019-06-23 11:26 | NUR ---
REVIEWED MED REC WITH PATIENT AND FAMILY. PATIENT IS VERY CRANKY AND FRUSTRATED. SHE WANTS HER PAIN MEDS. REPORTED TO DR AND TYLENOL GIVEN ORDERED. PATIENT IS RESTING ON BACK AND COMPLAINING OF DISCOMFORT. SHE SAYS SHE IS READY TO GO HOME. FAMILY AT BEDSIDE.
--- NOTE | 2019-06-23 13:20 | NUR ---
PATIENT IS BEING DISCHARGED.
[2019-06-23 13:50] VITALS: BP 110/61
--- NOTE | 2019-06-23 15:40 | NUR ---
DISCHARGED PATIENT. DISCHARGE COMPLETE AND TEACHING DONE. IV REMOVED FROM LEFT EXTERNAL JUGULAR , CATHETER INTACT. PATIENT TOLERATED. PATIENT LEFT THE FLOOR WITH FAMILY, AND ALL PATIENT BELONGINGS HAVE BEEN REMOVED FROM THE ROOM.
--- NOTE | 2019-06-23 17:18 | MORECARE ---
CASE MANAGEMENT DISCHARGE SUMMARY PATIENT: AGNES VALENTINE UNIT: [id number] ADM DATE: 06/22/19 AGE: 68 : 48 SEX: F ROOM/BED: D.210 AUTHOR: DUSTIN ROWLAND PHYSICIAN: REFERRING PHYSICIAN: URI CORTES MD DATE OF SERVICE: 06/23/19 Discharge Plan Patient Name: AGNES VALENTINE [facility] [facility] 1950 Planned Disposition: Home Anticipated Discharge Date: 06/23/19 Discharge Date: 06/23/2019 Expected LOS: 1 Initial Reviewer: [email or web address] Initial Review Date: 06/23/2019 Generated: 06/23/19 6:17 pm Patient Name: AGNES VALENTINE Page [phone] at 1718 All edits/amendments must be made on the electronic document DICTATION DATE: 06/23/191716 ADDING MACHINE MECHANIC: ANNY 06/23/191716 RPT#: [id number] DC DATE:06/23/19 STATUS: DIS IN [facility] [address] [place] [address] END OF REPORT
== END 2019-06-23 15:44 | disposition home or self-care (01) ==
LOC: D.ER 12:38 → D.M2 17:44 → OBSVTIME 17:46 → D.M2 06-23 15:44
PROVIDERS: Family Medicine; ADMIT Internal Medicine Nephrology; ATTEND Internal Medicine Nephrology
DX: T40.2X1A Poisoning by other opioids, accidental (unintentional), initial encounter (principal); R55 Syncope and collapse; N17.9 Acute kidney failure, unspecified; I95.9 Hypotension, unspecified; E87.1 Hypo-osmolality and hyponatremia; E83.42 Hypomagnesemia; G89.29 Other chronic pain; E66.01 Morbid (severe) obesity due to excess calories; Z68.41 Body mass index [BMI] 40.0-44.9, adult; I10 Essential (primary) hypertension; E03.9 Hypothyroidism, unspecified; I25.10 Atherosclerotic heart disease of native coronary artery without angina pectoris; F41.8 Other specified anxiety disorders

== ENCOUNTER → 2019-11-17 08:44 | Outpatient (CLI) | payer MEDICARE, OTHER ==
[2019-10-31 09:03] VITALS: BMI 48.5
--- NOTE | ~2019-11-17 | EC ---
PATIENT:AGNES VALENTINE DATE OF SERVICE: 11/17/19 SEX: F MEDICAL RECORD: [id number] DATE OF : [birth year] [facility] AGE OF PATIENT: 69 ADMISSION DATE: 11/17/19 REFERRING PHYSICIAN: INTERPRETING PHYSICIAN: DEMETRI CARRERA MD ECHOCARDIOGRAM REPORT ECHO CHARGES 4 ECHO COMPLETE Date: 11/17/19 CLINICAL DIAGNOSIS: ATYPICAL CP H/O HTN/CAD ECHOCARDIOGRAPHIC MEASUREMENTS (adult normal given) AC root (d.<3.7cm) 2.8 cm LV Septum d (<1.2 cm> 1.4 cm Valve Excursion 1.7 cm LV Septum (systole) 1.7 cm Left Atria (s.<4.0cm> 5.3 cm LVPW d(<1.2cm) 1.3 cm RV (d.<2.3cm) 2.0 cm LVPW (sytole) 1.8 cm LV diastole(<5.6CM) 4.9 cm MV E-F(>70mm/sec) cm LV systole 3.1 cm LVOT Diameter 1.6 cm MV exc.(>10mm) cm Est.ejection fraction (50-75%) % DOPPLER: LVIT cm/sec A 145 cm/sec E 100 cm/sec LA cm/sec RVSP 41.0 mmHg LVOT 113 cm/sec AOP1/2T m/s Asc. Ao 160 cm/sec RVOT 75.0 cm/sec RA cm/sec PA 115 cm/sec AV Gradient Peak 10.2 mmHg AV Mean 5.8 mmHg AV Area 1.3 cm MV Gradient Peak 9.3 mmHg MV Mean 2.9 mmHg MV Area cm COMMENTS: OP - HC Exhibit Electrician: 1 ANDREW BARKEROE Diving Judge: 3 Dr. Man TAPE# PACS Pericardial Effusion N DATE OF SERVICE: Adequate 2D, color flow imaging, spectral Doppler, and M-mode. LVH is present. LV internal dimension is normal. Wall motion is normal. EF is greater than or equal to 55%. Aortic valve is tricuspid. No evidence of stenosis by Doppler interrogation. Left atrium is dilated at 5.3 cm. Mitral valve shows no prolapse. Trace MR. Right-sided chambers are grossly normal. Trace TR. ECHOCARDIOGRAM REPORT [id number] AGNES VALENTINE TRANSINT:[id number] Voice Confirmation ID: [id number] DOCUMENT ID: [id number] DEMETRI CARRERA MD CC: [id number] DICTATION DATE: 11/21/19 1256 CONTROLS DESIGN ENGINEER: 11/21/19 2316 DEP CLI 11/17/19 [place] [id number]
[~2019-11-17 08:44] MED LIST changes: +BUPROPION HCL100 MG PO; +ZESTRIL10 MG PO
== END | disposition home or self-care (01) ==
LOC: D.HCCECHO 11-16 13:30
PROVIDERS: ATTEND Internal Medicine Interventional Cardiology
DX: I25.10 Atherosclerotic heart disease of native coronary artery without angina pectoris (principal)

== ENCOUNTER → 2019-11-22 11:27 | Outpatient (CLI) | payer MEDICARE, OTHER ==
[2019-10-31 09:03] VITALS: BMI 48.5
--- NOTE | ~2019-11-22 | HEMODYNAMI ---
PATIENT:AGNES VALENTINE MEDICAL RECORD: [id number] : [birth year] LOCATION:D[facility] ADMISSION DATE: 11/22/19 Generatedon:11/22/201913:28 Patient name: AGNES VALENTINE Patient #: [id number] SSN: : 1950 Date of study: 11/22/2019 Page: Of Hemodynamic Procedure Report Patient Data Patient Demographics Procedure consent was obtained First Name: AGNES Gender: Female Last Name: MEME : 1950 Middle Initial: BRAEDEN Age: 69 year(s) Patient #: [id number] Race: Additional ID: [id number] Contact details Address: [facility] [address] State: [place] City: [place] Zip code: [address] Past Medical History Allergies Allergen Reaction Date Comments Reported Other allergy 12/09/2017 STERI STRIP GLUE Admission Admission Data Admission Date: 11/22/2019 Admission Time: 11:27 Procedure Procedure Types Cath Procedure Peripheral Cath Diagnostic Procedure Miscellaneous Aspiration/Injection (Joint) Procedure Description Procedure Date Procedure Date: 11/22/2019 Procedure Start Time: 13:19 Procedure Staff Name Function Rahat Maki MD Performing Physician Dano Ferris RT Monitor Procedure Data Cath Procedure Fluoroscopy Diagnostic fluoroscopy Total fluoroscopy Time: 0 time: 0 min min Diagnostic fluoroscopy Total fluoroscopy dose: 1 dose: 1 mGy mGy Hemodynamics Rest Pre Cath Intra NCS Post Cath Procedure Log Time Note 13:06:09 Dano Ferris RT (R) (CV) sent for patient. Start room use. 13:06:50 Time tracking: Regular hours (M-F 7:00 - 5:00) 13:07:01 Patient received from Other to IR Alert and oriented. Tansferred to table in Supine position. 13:07:03 Signed procedure consent form obtained from patient. 13:07:05 Correct patient and procedure confirmed by team. 13:07:06 Full Disclosure recording started 13:07:06 - 13:07:07 Pre-procedure instructions explained to patient. 13:07:07 Pre-op teaching completed and patient verbalized understanding. 13:07:16 - 13:07:19 Is patient on blood thinner?No 13:07:23 Alarms reviewed by RLotus N. 13:07:23 Sharps counted by scrub and verified by R.N. 13:07:28 Right Knee was prepped with chlora-prep and draped in sterile fashion. 13:17:21 Physician arrived 13:17:42 --------ALL STOP TIME OUT------ 13:17:43 Final Timeout: patient, procedure, and site verified with staff and physician. All members of the team are in agreement. 13:17:49 Right Radial KNEE site verified by team. 13:18:13 Sedation plan: Local Anesthetic Medication:Lidocaine 13:18:58 Procedure started. 13:19:05 Local anesthetic to Right Knee with Lidocaine 1% by Rahat Maki MD.INITIAL ACCESS ONLY 13:19:20 SAFE-T PLUS MYELOGRAM TRAY opened to sterile field. 13:26:08 Procedure ended.(Physican Out) 13:26:48 Fluoroscopy time 00.00 minutes. 13:26:52 Fluoroscopy dose: 1 mGy 13:26:52 Flurop Dose total: 1 13:27:44 BANDAIDE APPLIED TO SITE.RT.KNEE STAPLE SPECIMEN COLLECTED AND SENT TO LAB PT SENT HOME Device Usage Item Name Manufacture Quantity Catalog Hospital Part Current Minimal Lot# / Number Charge Number Stock Stock Serial# Code SAFE-T Care[employer]usion 1 [id number] PLUS MYELOGRAM TRAY Signature Audit [place] Stage Time Signature Unsigned Intra-Procedure 11/22/2019 Dano 1:28:00 PM [place] RT (R) (CV) [facility] [address] [facility] [place] [address]
[2019-11-22 12:07] LABS: BASOPHILS 0 % (0-2); EOSINOPHILS 3.3 % (0-7); HEMATOCRIT 37.7 % (36.0-48.0); HEMOGLOBIN 11.9 g/dL (12-16); IMMATURE GRANULOCYTES 0.2 % (0-5); LYMPHOCYTES 31.4 % (15-50); MCHC 31.6 g/dL (31.0-37.0); MCV 91.7 fL (80.0-100.0); MEAN PLATELET VOLUME 8.4 fL (7.4-10.4); MONOCYTES 6.2 % (2-11); NEUTROPHILS 58.9 % (40-80); RBC 4.11 10x6/uL (4.00-5.40); RDW 12.8 % (11.5-14.5); WBC 6.3 10x3/uL (4.8-10.8)
[2019-11-22 12:11] LABS: PLATELET COUNT 280 10x3/uL (130-400)
[2019-11-22 14:22] LABS: ERYTHROCYTE SEDIMENTATION RATE 57 mm/hr (0-30)
== END | disposition home or self-care (01) ==
LOC: D.LAB 11:27 → D.RAD 13:00
PROVIDERS: ATTEND Clinical Nurse Specialist Family Health
DX: T84.9XXA Unspecified complication of internal orthopedic prosthetic device, implant and graft, initial encounter (principal)

== ENCOUNTER 2020-05-16 15:47 | Outpatient (CLI) | payer MEDICARE, OTHER ==
[2019-10-31 09:03] VITALS: BMI 48.5
== END 2020-05-16 23:59 | disposition home or self-care (01) ==
LOC: D.MAMMO 15:47
PROVIDERS: ATTEND Family Medicine
DX: Z12.31 Encounter for screening mammogram for malignant neoplasm of breast (principal)

== ENCOUNTER → 2020-11-19 08:07 | Outpatient (CLI) | payer MEDICARE ==
[2019-10-31 09:03] VITALS: BMI 48.5
== END | disposition home or self-care (01) ==
LOC: D.MRI 08:07
PROVIDERS: ATTEND Family Medicine
DX: M54.30 Sciatica, unspecified side (principal)

== ENCOUNTER → 2020-11-23 08:14 | Outpatient (CLI) | payer MEDICARE ==
[2019-10-31 09:03] VITALS: BMI 48.5
== END | disposition home or self-care (01) ==
LOC: D.HCCARDIO 08:14
PROVIDERS: ATTEND Internal Medicine Cardiovascular Disease
DX: I25.10 Atherosclerotic heart disease of native coronary artery without angina pectoris (principal)

== ENCOUNTER 2020-12-03 06:40 | Day surgery (SDC) | payer MEDICARE, OTHER ==
[~2020-12-03] VITALS: Ht 162.6 cm; Wt 134.3 kg
--- NOTE | ~2020-12-03 | HEMODYNAMI ---
PATIENT:AGNES VALENTINE MEDICAL RECORD: [id number] : 46 LOCATION:[facility] ADMISSION DATE: 12/03/20 Generatedon:19:08 Patient name: AGNES VALENTINE Patient #: [id number] SSN: : 1950 Date of study: 12/03/2020 Page: Of Hemodynamic Procedure Report Patient Data Patient Demographics Procedure consent was obtained First Name: AGNES Gender: Female Last Name: MEME : 1950 [facility] Initial: BRAEDEN Age: 70 year(s) Patient #: [id number] Race: Additional ID: [id number] Contact details Address: [address]: [place] [facility] Zip code: [address] Past Medical History History of disease Date Diagnosis Comments CAD Allergies Allergen Reaction Date Comments Reported Other allergy 12/09/2017 STERI STRIP GLUE Other allergy 12/03/2020 NKDA Admission Admission Data Admission Date: 12/03/2020 Admission Time: 6:40 Height (in.): 64 BSA: 2.28 (m2) Height (cm.): 162.56 BMI: 49.09 (kg/m2) Weight (lbs.): 286 Weight (kg.): 129.73 Lab Results Lab Result Date: 12/03/2020 Lab Result Time: 0:00 Biochemistry Name Units Result Min Max BUN mg/dl 23 --(----)-* 7 18 Creatinine mg/dl 0.9 --(-*--)-- 0.6 1.3 eGFR ml/min 64.95457 *-(----)-- 90 120 NONAFRICAN CBC Name Units Result Min Max Hematocrit % 36.9 *-(----)-- 42 54 Hemoglobin g/dl 11.7 *-(----)-- 13.5 17.5 Procedure Procedure Types Cath Procedure Diagnostic Procedure LHC [facility] w/Coronaries FFR/IVUS FFR Initial Sedation Charges Moderate Sedation 10-24 minutes PCI Procedure Coronary Stent Coronary Stent Initial Hemochron ACT Test Procedure Description Procedure Date Procedure Date: 12/03/2020 Procedure Start Time: 8:40 Procedure End Time: 9:07 Procedure Staff Name Function Ned Claudio MD Performing Physician Hanh Aguilar RT Monitor Joelle Pinto RT Scrub Colleen Oewn RN Nurse Procedure Data Cath Procedure Fluoroscopy Diagnostic fluoroscopy Total fluoroscopy Time: 6.8 time: 6.8 min min Diagnostic fluoroscopy Total fluoroscopy dose: dose: 1005 mGy 1005 mGy Contrast Material Contrast Material Type Amount (ml) Isovue 300 125 Entry Location Entry Primary Successful Side Size Upsize Upsize Entry Closure Succes sful Closure Location (Fr) 1 (Fr) 2 (Fr) Remarks Device Remarks Femoral Right 5 Fr 6 Fr Exoseal artery Short Estimated blood loss: 10 ml Diagnostic catheters Device Type Used For End Catheter Placement MULTIPACK JL 4.0 5Fr Procedure catheter MULTIPACK 3DRC 5Fr Procedure catheter MULTIPACK Pigtail 5 Fr Ventriculography catheter Procedure Complications No complications Procedure Medications Medication Administration Route Dosage Oxygen etCO2 Nasal cannula 2 l/min Lidocaine 2% added to field 20 Heparin Flush Bag added to field 2 bags (1000units/500ml NS) 0.9% NaCl I.V. 100 ml/hr Versed I.V. 1 mg Fentanyl I.V. 50 mcg Versed I.V. 1 mg Fentanyl I.V. 50 mcg Heparin Bolus I.V. 5000 units Integrilin (Bolus I.V. 11.3 ml 2mg/ml) Versed I.V. 1 mg Fentanyl I.V. 50 mcg Versed I.V. 1 mg Fentanyl I.V. 50 mcg Plavix P.O. 600 mg Heparin Bolus I.V. 2000 units Hemodynamics Rest BSA: 2.28 (m2) HGB: 11.7 (g/dl) O2 Consumption: Estimated: 211.73 (ml/min) O2 Co nsumption indexed: Estimated:92.86 (ml/min/m) Heart Rate: 73 (bpm) Pressure Samples Time Site Value (mmHg) Purpose Heart Use Rate(bpm) 8:44 LV 107/17,20 Snapshot 88 Gradients Valve Time Site Site Mean SEP/DFP Peak To Heart Use 1 2 (mmHg) (sec/min) Peak Rate (mmHg) (bpm) Aortic 8:45 LV AO 90 Snapshots Pre Cath Intra NCS Post Cath Vital Signs Time Heart Resp SPO2 etCO2 NIBP (mmHg) Rhythm Pain Sedation Rate (ipm) (%) (mmHg) Status Level (bpm) 8:20:07 72 17 100 0 131/75(102) NSR 0 (11) 10(A) , No pain 8:24:21 70 15 100 0 131/73(101) NSR 0 (11) 10(A) , No pain 8:28:37 75 16 100 35.3 125/67(105) NSR 0 (11) 10(A) , No pain 8:32:43 73 31 98 20.3 118/62(90) NSR 0 (11) 10(A) , No pain 8:36:55 77 15 99 35.3 113/63(86) NSR 0 (11) 10(A) , No pain 8:41:05 73 19 99 0 117/60(96) NSR 0 (11) 10(A) , No pain 8:45:12 83 13 98 0 111/72(97) NSR 0 (11) 9(A) , No pain 8:49:20 86 15 98 0 111/66(81) NSR 0 (11) 9(A) , No pain 8:53:26 89 14 99 27 124/69(99) NSR 0 (11) 10(A) , No pain 8:57:36 87 15 99 40.6 138/69(107) NSR 0 (11) 10(A) , No pain 9:01:50 91 29 99 32.3 151/76(106) NSR 0 (11) 10(A) , No pain 9:06:04 87 18 100 39.1 136/78(104) NSR 0 (11) 10(A) , No pain Medications Time Medication Route Dose Verified Delivered Reason Notes Effectiveness by by 8:29:46 Oxygen etCO2 2 Ned Macias used for Nasal l/min [facility] 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 100 Ned Macias Per physician ml/hr St Efrain Owen RN, MD 8:40:09 Versed I.V. 1 mg Ned Buffie for sedation [facility] Efrain Owen RN, MD 8:40:15 Fentanyl I.V. 50 Ned Buffie for sedation mcg St Efrain Owen RN, MD 8:44:58 Versed I.V. 1 mg Ned Buffie for sedation St Efrain Owen RN, MD 8:45:02 Fentanyl I.V. 50 Ned Buffie for sedation mcg St Efrain Owen RN, MD 8:47:03 Heparin Bolus I.V. 5000 Ned Buffie for verifi ed units St Efrain Owen RN anticoagulation with dr MD inman 8:49:42 Integrilin I.V. 11.3 Ned Romeroie for Wasted (Bolus 2mg/ml) ml St Efrain Owen RN antiplatelet 8.7 ml of MD therapy vial 8:52:08 Versed I.V. 1 mg Ned Romeroie for sedation St Efrain Owen RN, MD 8:52:12 Fentanyl I.V. 50 Ned Buffie for sedation mcg St Efrain Owen RN, MD 8:56:09 Versed I.V. 1 mg Ned Buffie for sedation St Efrain Owen RN, MD 8:56:13 Fentanyl I.V. 50 Ned Buffie for sedation mcg St Efrain Owen RN, MD 9:04:26 Plavix P.O. 600 Ned Romeroie for mg St Efrain Owen RN antiplatelet MD therapy 9:05:34 Heparin Bolus I.V. 2000 Ned Romeroie for verifi ed units St Efrain Owen RN anticoagulation with dr MD inman after act resulted. Procedure Log Time Note 7:54:57 Informed consent obtained and on chart 7:55:17 Procedure Status Elective Heart Cath (OP). 7:55:18 Time tracking: Regular hours (M-F 7:00 - 5:00) 7:55:22 Plan of Care:Hemodynamics will remain stable., Cardiac rhythm will remain stable., Comfort level will be maintained., Respiratory function will remain adequate., Patient/ family verbilizes understanding of procedure., Procedure tolerated without complication., Recovers from procedure without complications.. 7:55:35 H&P Date Dictated: 11/14/2020 Within 30 days and on chart., H&P Addendum completed by physician on day of procedure. (MUST COMPLETE FOR ALL OUTPATIENTS). 7:55:53 Patient allergic to Other allergyNKDA 7:59:06 Patient Height : 64 inches 7:59:10 Patient Weight : 286 lbs 8::16 Lab Result : Creatinine 0.9 mg/dl 8::16 Lab Result : BUN 23 mg/dl 8::16 Lab Result : eGFR NONAFRICAN 64.42194 ml/min 8:01:16 Lab Result : Hematocrit 36.9 % 8::16 Lab Result : Hemoglobin 11.7 g/dl 8:02:27 Colleen Owen RN sent for patient. Start room use. 8:09:43 Patient received from Pre/Post Procedure Room to CCL 1 Alert and oriented. Tansferred to table in Supine position. 8:09:44 Warm blankets applied, and ricardo hugger turned on for patient comfort. 8:09:44 Correct patient and procedure confirmed by team. 8:09:45 ECG and BP/O2 sat monitors applied to patient. 8:19:04 Vital chart was started 8:19:05 Baseline sample Acquired. 8:19:08 Rhythm: sinus rhythm 8:19:09 Full Disclosure recording started 8:19:10 Pre-procedure instructions explained to patient. 8:19:10 Pre-op teaching completed and patient verbalized understanding. 8:19:12 Family in patients room. 8:19:13 Patient NPO since Midnight. 8:19:15 Is the patient allergic to Iodine/contrast media? No. 8:19:16 Is patient on blood thinner?No 8:21:56 Patient diabetic? No. 8:22:10 Previous problem with sedation/anesthesia? No ? 8:22:11 Snore? No 8:22:12 Sleep apnea? No 8:22:22 Patient pain scale 0/10 ?. 8:22:28 IV patent on arrival in left forearm with 0.9% NaCl at [facility]. 8:22:33 Lab results completed and on chart. 8:28:10 Stress Test: yes; abnormal anterior/apical 8:29:46 Oxygen 2 l/min etCO2 Nasal cannula was administered by Colleen Owen RN; used for procedure; Verbal order read back and verified. 8:29:55 Lidocaine 2% 20ml vial added to field was administered by Ned Claudio MD; for local anesthetic; Verbal order read back and verified. 8:30:01 Heparin Flush Bag (1000units/500ml NS) 2 bags added to field was administered by Ned Claudio MD; used for procedure; Verbal order read back and verified. 8:30:08 0.9% NaCl 100 ml/hr I.V. was administered by Colleen Owen RN; Per physician; Verbal order read back and verified. 8:36:13 Risk of Mortality: .1 8:36:17 Risk of blood transfusion: 1.9 8:36:21 Risk of LETTY: 4.2 8:39:04 Right groin area was prepped with chlora-prep and draped in sterile fashion 8:39:05 Alarms reviewed by R. N. 8:39:05 Sharps counted by scrub and verified by R.N. 8:39:07 Physician arrived 8:39:07 --------ALL STOP TIME OUT------ 8:39:08 Final Timeout: patient, procedure, and site verified with staff and physician. All members of the team are in agreement. 8:39:20 Right groin site verified by team. 8:39:27 Fire Safety Assessment: A--An alcohol-based skin anteseptic being used preoperatively., C--Open oxygen or nitrous oxide is being used., D--An ESU, laser, or fiber-optic light is being used. 8:39:37 Physical assessment completed. ASA score P 3 - A patient with severe systemic disease as per Ned Claudio MD. 8:39:43 2) 60-89 Mildly reduced kidney function, and other findings (as for stage 1) point to kidney disease. 8:39:48 Maximum allowable contrast dose (3.7 X eGFR X 0.75)180 ml. 8:39:57 Sedation plan: IV Moderate Sedation Medication:Versed, Fentanyl 8:40:09 Versed 1 mg I.V. was administered by Colleen Owen RN; for sedation; Verbal order read back and verified. 8:40:11 Use device set Femoral Dx 8:40:13 Procedure started. 8:40:15 Fentanyl 50 mcg I.V. was administered by Colleen Owen RN; for sedation; Verbal order read back and verified. 8:40:15 ACIST Syringe (90422) opened to sterile field. 8:40:15 Bag Decanter (2001S) opened to sterile field. 8:40:16 Medline Cath Pack ([id number]) opened to sterile field. 8:40:17 ACIST Hand Control (37675) opened to sterile field. 8:40:18 ACIST Manifold (37207) opened to sterile field. 8:40:18 DIAGNOSTIC Multipack 5Fr catheter set ([id number]) opened to sterile field. 8:40:20 SHEATH 5FR Bean [place] ([id number]) opened to sterile field. 8:40:21 EMERALD Guide Wire (502-262) opened to sterile field. 8:40:50 Local anesthetic to right femoral artery with Lidocaine 2% by Ned Claudio MD.INITIAL ACCESS ONLY 8:41:12 Access obtained with 4Fr micropunture. 8:41:22 A 5 Fr sheath was inserted into the Right Femoral artery 8:41:31 A MULTIPACK JL 4.0 5Fr catheter was advanced over the wire and used for Procedure. 8:42:55 LCA angiography performed. 8:42:57 Catheter removed. 8:43:06 A MULTIPACK 3DRC 5Fr catheter was advanced over the wire and used for Procedure. 8:43:47 RCA angiography performed. 8:44:14 Catheter removed. 8:44:23 A MULTIPACK Pigtail 5 Fr catheter was advanced over the wire and used for Ventriculography. 8:44:48 LV hemodynamics recorded. 8:44:58 Versed 1 mg I.V. was administered by Colleen Owen RN; for sedation; Verbal order read back and verified. 8:45:02 Fentanyl 50 mcg I.V. was administered by Colleen Owen RN; for sedation; Verbal order read back and verified. 8:45:05 EF : 55 % 8:45:44 Catheter removed. 8:45:48 Proceeding to intervention. 8:46:22 Sheath upsized to a 6 Fr Short. 8:47:03 Heparin Bolus 5000 units I.V. was administered by Colleen Owen RN; for anticoagulation; verified with dr inman Verbal order read back and verified. 8:48:06 SHEATH 6FR [place] (WSN013) opened to sterile field. 8:48:07 GUIDE 6FR JL 4.0 catheter ([id number]) opened to sterile field. 8:48:08 INFLATOR Merit BasixCompak (RL1192) opened to sterile field. 8:48:09 [place] OmniWire (20092) opened to sterile field. 8:48:30 Pressure wire advanced. 8:48:43 Zero performed for pressure channel P1 8:49:24 Wire advanced across lesion. 8:49:42 Integrilin (Bolus 2mg/ml) 11.3 ml I.V. was administered by Colleen Owen RN; for antiplatelet therapy; Wasted 8.7 ml of vial Verbal order read back and verified. 8:52:08 Versed 1 mg I.V. was administered by Colleen Owen RN; for sedation; Verbal order read back and verified. 8:52:12 Fentanyl 50 mcg I.V. was administered by Colleen Owen RN; for sedation; Verbal order read back and verified. 8:55:20 Place stent Inflation Number: 1 A RAKEL RX 2.5 x 12 stent ([id number]) was prepped and advanced across the Mid LAD . The stent was deployed at 14 NELLY for 0:20 (min:sec) . 8:55:42 Inflation number: 2 The stent balloon was then re-inflated across the Mid LAD to 14 NELLY for 0:13 (min:sec) . 8:56:09 Versed 1 mg I.V. was administered by Colleen Owen RN; for sedation; Verbal order read back and verified. 8:56:13 Fentanyl 50 mcg I.V. was administered by Colleen Owen RN; for sedation; Verbal order read back and verified. 8:56:28 Stent catheter was removed intact over wire. 8:57:16 mLAD lesion measured at .79 with IFR 8:59:47 Inflate balloon Inflation number: 3 A Mozec Rx 3.5 x 14 balloon was prepped and advanced across the Mid LAD , then inflated to 14 NELLY for 0:10 (min:sec) . 9:01:02 mLAD lesion measured at .93 with IFR 9:01:28 Wire removed. 9:01:30 Guide catheter removed. 9:01:46 EXOSEAL 6Fr (EX600) opened to sterile field. 9:02:25 Sheath removed intact; hemostasis achieved with Exoseal to the Right Femoral artery. 9:02:28 Procedure ended.(Physican Out) 9:02:37 Fluoroscopy time 06.80 minutes. ::43 Fluoroscopy dose: 1005 mGy 9:02:43 Flurop Dose total: 1005 9:02:49 Dose Area Product 36159 mGy/cm. 9:02:57 Contrast amount:Isovue 300 125ml. 9:03:02 Maximum allowable dose exceeded? Yes. 9:03:04 Insertion/operative site no bleeding no hematoma. 9:03:10 Post Procedure Pulses reassessed and unchanged 9:03:16 Post-procedure physical assessment completed. ASA score P 3 - A patient with severe systemic disease as per Ned Claudio MD. 9:03:20 Post procedure rhythm: unchanged. 9:03:24 Estimated blood loss: 10 ml 9:03:49 Post procedure instruction explained to patient.Patient verbalizes understanding. 9:04:14 Procedure type changed to Cath procedure, Diagnostic procedure, LHC, [facility] w/Coronaries, FFR/IVUS, FFR Initial, Sedation Charges, Moderate Sedation 10-24 minutes, PCI procedure, Coronary Stent, Coronary Stent Initial, Hemochron ACT Test 9:04:26 Plavix 600 mg P.O. was administered by Colleen Owen RN; for antiplatelet therapy; Verbal order read back and verified. 9:05:13 Procedure and supply charges have been captured, reviewed, submitted and are correct. 9:05:28 ACT drawn and resulted at 154 seconds. (normal therapeutic range 180-240 seconds). 9:05:34 Heparin Bolus 2000 units I.V. was administered by Colleen Owen RN; for anticoagulation; verified with dr inman after act resulted. Verbal order read back and verified. 9:07:16 Procedure Complication : No complications 9:07:18 Vital chart was stopped 9:07:21 [facility] Findings: MVD- PCI performed (see procedure note) 9:07:29 Operative report dictated upon procedure completion. 9:07:29 See physician's report for complete and final results. 9:07:32 Report given to Pre/Post Procedure Room. 9:07:35 Patient transfered to Pre/Post Procedure Room with Stretcher. 9:07:37 Procedure ended. 9:07:37 Full Disclosure recording stopped 9:07:41 End room use (Document Last) 9:08:01 End room use (Document Last) 9:08:32 End room use (Document Last) Intervention Summary Intervention Notes Time ActionType Lesion and Equipment Used Action# Pressure Duration Attributes 8:55:20 Place stent Mid LAD RAKEL RX 2.5 x 1 14 00:20 12 stent ([id number]) 8:55:42 Reinflate Mid LAD RAKEL RX 2.5 x 2 14 00:14 stent 12 stent balloon ([id number]) 8:59:47 Inflate Mid LAD Mozec Rx 3.5 x 3 14 00:10 balloon 14 balloon Device Usage Item Name Manufacture Quantity Catalog Hospital Part Current Minimal Lot# / Number Charge Number Stock Stock Serial# Code ACIST Syringe Acist 1 [id number] 092295 632514 922255 20 (96483) Medical Systems Inc Bag Decanter Microtek 1 2001S 776013 02444 150913 5 (2001S) Medical Inc. Medline Cath Medline 1 [id number] 617562 33651 047330 5 Pack ([id number]) ACIST Hand Acist 1 02605 513325 358894 730546 5 Control Medical (44876) Systems Inc ACIST Manifold Acist 1 52724 965158 463628 913668 5 (42350) Medical Systems Inc DIAGNOSTIC Cardinal 1 OA6909 095355 09580 336768 30 Multipack 5Fr Health catheter set (JT7104) SHEATH 5FR Terumo 1 NAE566 436850 739038 666364 5 [place] (YXW178) EMERALD Guide Cardinal 1 502-455 846047 141910 230545 5 Wire (502-455) Health MULTIPACK JL Cardinal 1 327265 5 4.0 5Fr Health catheter MULTIPACK 3DRC Cardinal 1 492078 5 5Fr catheter Health MULTIPACK Cardinal 1 538366 5 Pigtail 5 Fr Health catheter SHEATH 6FR Terumo 1 BWH440 595218 677535 872261 40 [place] (MND629) GUIDE 6FR JL Medtronic 1 [id number] 811655 07418 048471 1 4.0 catheter ([id number]) INFLATOR Merit Merit 1 OO8263 405031 997032 027299 15 [employer] (SZ9385) Fairfield Fairfield 1 1527030 323460 01468 9993 5 OmniWire (12157) RAKEL RX 2.5 x Medtronic 1 [id number] 372720 0358466 670412 5 [id number] 12 stent ([id number]) Mozec Rx 3.5 x Cardinal 1 [id number] 563004 [id number] 631674 5 [id number] 14 balloon Health EXOSEAL 6Fr Cardinal 1 EX600 632281 444349 809431 10 (EX600) Health Signature Audit [place] Stage Time Signature Unsigned Intra-Procedure 12/03/2020 Hanh Aguilar 9:08:01 AM RT(R) Intra-Procedure 12/03/2020 Colleen Owen RN 9:08:32 AM Intra-Procedure 12/03/2020 Ned Vora 9:08:52 AM Efrain MORALEZ [id number] [place] [address]
[2020-12-03] MEDS ORDERED: RIFADIN300 MG PO (07:12)
[2020-12-03] MEDS ORDERED: OMEPRAZOLE40 MG PO (07:13)
[2020-12-03] MEDS ORDERED: FLORASTOR250 MG PO (07:13)
[2020-12-03 07:22] VITALS: BP 133/62; Ht 162.6 cm; Wt 134.3 kg
[2020-12-03 07:46] LABS: BASOPHILS 0.2 % (0-2); EOSINOPHILS 3.6 % (0-7); HEMATOCRIT 36.9 % (36.0-48.0); HEMOGLOBIN 11.7 g/dL (12-16); IMMATURE GRANULOCYTES 0.2 % (0-5); LYMPHOCYTE ABS# 1.88 10x3/uL (1.18-3.74); LYMPHOCYTES 30.6 % (15-50); MCH 27.5 pg (26.0-34.0); MCHC 31.7 g/dL (31.0-37.0); MCV 86.8 fL (80.0-100.0); MONOCYTES 8.3 % (2-11); NEUTROPHIL ABS# 3.52 10x3/uL (1.56-6.13); NEUTROPHILS 57.1 % (40-80); PLATELET COUNT 203 10x3/uL (130-400); RBC 4.25 10x6/uL (4.00-5.40); RDW 14.1 % (11.5-14.5); WBC 6.2 10x3/uL (4.8-10.8)
[2020-12-03 07:49] LABS: ANION GAP 11.5 mmol/L (8-16); CALCIUM 8.9 mg/dL (8.5-10.1); CARBON DIOXIDE 27.9 mmol/L (21.0-32.0); CHOL - HDL RATIO 3.8 ratio (2.3-4.1); CREATININE - SERUM 0.9 mg/dL (0.6-1.3); LDL-HDL RATIO 2.6 ratio (1.5-3.5); POTASSIUM - SERUM 4.4 mmol/L (3.5-5.1)
--- NOTE | 2020-12-03 09:22 | NUR ---
PT ARRIVES TO ROOM 10 VIA STRETCHER S/P HEART CATH, SEE BUILDING ESTIMATOR, PT PLACED ON MONITORS AND ALARMS ON, PT DENIES PAIN OR NEEDS AT PRESENT, PT SON AT BEDSIDE, SIPS OF SPRITE OFFERED, PT GIVEN TIME FRAME TO LAY FLAT WITH HEAD ON PILLOW AND PLAN OF CARE, CALL LIGHT WITHIN REACH
--- NOTE | 2020-12-03 09:37 | NUR ---
RESTING QUIETLY , AROUSES EASILY TO VERBAL, SR , VSS, RIGHT GROIN SOFT WITHOUT PALPABLE HEMATOMA, PEDAL PULSE PALPABLE, IV INFUSING PER ORDERS, DENIES BATHROOM NEEDS , DENIES PAIN OR NEEDS AT PRESENT, CALL LIGHT WITHIN REACH
--- NOTE | 2020-12-03 09:52 | NUR ---
RESTING QUIETLY AROUSES EASILY TO VERBAL, VSS, SR HR 73 WITHOUT ECTOPY, IV INFUSING PER ORDERS , RIGHT GROIN SOFT WITH NO OOZING OR BLEEDING NOTED, NO PALPABLE HEMATOMA EXTREMITY IS WARM AND PEDAL PULSE IS PALPALBE , CAP REFILL WNL, DENIES PAIN OR NEEDS AT PRESENT, CALL LIGHT WITHIN REACH
[2020-12-03] MEDS ORDERED: PLAVIX75 MG PO (09:54)
[2020-12-03] MEDS ORDERED: BAYER CHEWABLE81 MG PO ×2 (09:54→09:55)
--- NOTE | 2020-12-03 10:05 | NUR ---
EYES CLOSED AROUSES EASILY, FAMILY MEMBER AT BEDSIDE, DENIES PAIN OR NEEDS, VSS BP 127/59 , SR ON MONITORS, RIGHT GROIN SOFT WITHOUT PALPABLE HEMATOMA, NO OOZING OR BLEEDING NOTED, EXTREMITY WARM AND PEDAL PULSE PALPABLE, IV INFUSING PER ORDERS, QUESTIONS AND CONERNS ADDRESSED, PLAN OF CARE REVIEWED, SON AT BEDSIDE, CALL LIGHT WITHIN REACH
--- NOTE | 2020-12-03 10:35 | NUR ---
EYES CLOSED AROUSES EASILY, VSS, SR, RIGHT GROIN SOFT WITH NO PALPABLE HEMATOMA, NO OOZING OR BLEEDING NOTED, PEDAL PULSE PALPABLE, PT C/O DISCOMFORT FROM LYING SUPINE PT REPORTS THAT THIS DISCOMFORT / PAIN IS CHRONIC AND LAYING FLAT AGGRAVATES IT, REPOSITIONED FOR COMFORT, PT IS GIVEN TIME FRAME TO WHEN SHE MAY SIT UP. IV INFUSING PER ORDERS, DENIES BATHROOM NEEDS, CALL LIGHT WITHIN REACH
--- NOTE | 2020-12-03 11:00 | NUR ---
RESTING QUIETLY, VSS, SR, RIGHT GROIN SOFT/STABLE , NO OOZING OR BLEEDING NOTED, NO PALPABLE HEMATOMA , RIGHT LOWER EXTREMITY WARM WITH SENSATON INTACT, PEDAL PULSE PALPABLE, PT DENIES PAIN OR NEEDS, PT DENIES BATHROOM NEEDS, IV INFUSING PER ORDERS, CALL LIGHT WITHIN REACH
--- NOTE | 2020-12-03 11:30 | NUR ---
PT RESTING QUIETLY, EYES CLOSED AROUSES EASILY, VSS, SR, SATS 97% RA, RIGHT GROIN SOFT WITH NO BLEEDING OR OOZING, RIGHT LOWER EXTREMITY WARM AND CAP REFILL WNL, PEDAL PULSE PALPABLE, PT DENIES PAIN OR NEEDS, IV INFUSING PER ORDERS, DENIES BATHROOM NEEDS AT PRESENT, CALL LIGHT WITHIN REACH
--- NOTE | 2020-12-03 12:00 | NUR ---
PT PLACED IN SEMI FOWLERS POSITION AND REPORTS EASE IN BACK DISCOMFORT, VSS, SR, SATS 98% RA, PT GIVEN SANDWICH BOX AND PO FLUIDS, RIGHT GROIN SOFT WITH NO BLEEDING OR OOZING NOTED, PEDAL PULSE PALPABLE, PT DENIES PAIN OR NEEDS AT PRESENT, CALL LIGHT WITHIN REACH, IV INFUSING PER ORDERS
--- NOTE | 2020-12-03 12:30 | NUR ---
SITTING SEMI FOWLERS POSITION PT CONSUMED 100% SANWICH , DENIES NAUSEA OR VOMITING NOW EATING A CANDY BAR. VSS, SR WITH NO ECTOPY, RIGHT GROIN SOFT WITHOUT OOZING OR BLEEDING NOTED, PEDAL PULSE PALPABLE, DENIES PAIN OF NEEDS, IV REMOVED ORDERED CATHETER INTACT 2 X 2 DRESSING APPLIED, DISCHARGE TEACHING STARTED WITH PT AND SPECIAL EDUCATION ASSISTANT, CALL LIGHT WITH IN REACH
--- NOTE | 2020-12-03 13:00 | NUR ---
DISCHARGE TEACHING COMPLETED PT VERBALIZED UNDERSTANDING. PT AMBULATES TO BATHROOM AND VOIDS WITHOUT DIFFICULTY, PT RIGHT GROIN SOFT WITH OPSITE INPLACE C/D/I, NO PALPABLE HEMATOMA, PEDAL PULSE PALPABLE, PT DENIES PAIN OF NEEDS, IV CATHETER REMOVED AND INTACT 2X2 DRESSING APPLIED, PT HAS NO QUESTIONS OR NEEDS AT THIS TIME , TAKEN TO PRIVATE VEHICLE VIA WHEELCHAIR
--- NOTE | 2020-12-03 16:00 | OP ---
PATIENT NAME: AGNES VALENTINE MEDICAL RECORD: [id number] :46 LOCATION:D.[facility] ADMISSION DATE: SURGEON: DEMETRI CARRERA MD DATE OF OPERATION: 12/03/2020 PROCEDURE: Left heart catheterization, selective coronary angiography, plus IFR wire to the LAD, plus PTCA stenting to the LAD, right femoral artery approach. CATHETERS: A 5-Canadian sheath, 5/4 left and right Missael, 5/4 pig. The procedure was well tolerated. The patient was returned to the armijo. Sheath removed. ExoSeal device was placed. FINDINGS: Left ventriculography in 30-degree HAYES view: Normal wall motion, normal systolic function. CORONARY ANATOMY: Left main: Left main is free of disease. LAD: Has 2 sequential stenoses after the most distally placed stent of 90% proximal in the area of previous stenting with in-stent restenosis of what appears to be 70% to 80%. Circumflex: The circumflex is free of disease. Right coronary artery: Free of disease. PLAN: Intervention of the LAD momentarily. DESCRIPTION: A 5-Canadian sheath was changed for a 6-Canadian sheath. A JL4 guiding catheter provided excellent guide catheter support followed by the IFR wire. Distal stent deployed was a 2.5 x 12 mm Edin drug-eluting stent to 90% stenosis. A 2.5 x 12 mm was placed distally to 14 atmospheres to the 80% stenosis. This showed excellent resolution of 80% stenosis with no significant residual. The IFR wire was then used to measure the proximal stenosis and that was confirmed to be flow restrictive, had IFR below 0.9. Therefore, a 3.5 x 50 mm Mozec balloon was then inflated to 14 atmospheres. Post-intervention IFR was then normal. IMPRESSION: Successful PTCA stenting to the LAD with improvement in flow via IFR wire. Sheath was closed with ExoSeal device. Plavix was loaded in the lab. TRANSINT:[id number] Voice Confirmation ID: [id number] DOCUMENT ID: [id number] DEMETRI CARRERA MD at 1600 CC: [id number] DICTATION DATE: 12/03/20908 DEPUTY EDITOR IN CHIEF: 12/03/20 1231 [facility] 12/03/20 [place] [address]
== END 2020-12-03 13:00 | disposition home or self-care (01) ==
LOC: D.CATH 06:40
PROVIDERS: ATTEND Internal Medicine Interventional Cardiology
DX: I25.119 Atherosclerotic heart disease of native coronary artery with unspecified angina pectoris (principal); R06.00 Dyspnea, unspecified; I10 Essential (primary) hypertension
CPT/HCPCS: 93458; 93571; C9600

== ENCOUNTER 2021-01-21 12:26 | Emergency (ER) | payer MEDICARE ==
[~2021-01-21] VITALS: Ht 162.6 cm; Wt 129.5 kg
[~2021-01-21 12:26] MED LIST changes: +FLORASTOR250 MG PO; +OMEPRAZOLE40 MG PO; +RIFADIN300 MG PO
[2021-01-21 12:34] VITALS: Ht 162.6 cm; Wt 129.5 kg
[2021-01-21 13:18] LABS: BASOPHILS 0.1 % (0-2); EOSINOPHILS 1.7 % (0-7); HEMATOCRIT 42.6 % (36.0-48.0); HEMOGLOBIN 13.7 g/dL (12-16); IMMATURE GRANULOCYTES 0.3 % (0-5); LYMPHOCYTE ABS# 1.62 10x3/uL (1.18-3.74); MCH 28.1 pg (26.0-34.0); MCHC 32.2 g/dL (31.0-37.0); MCV 87.5 fL (80.0-100.0); MONOCYTES 5.8 % (2-11); NEUTROPHILS 76.1 % (40-80); PLATELET COUNT 204 10x3/uL (130-400); RBC 4.87 10x6/uL (4.00-5.40); RDW 13.8 % (11.5-14.5); WBC 10.1 10x3/uL (4.8-10.8)
[2021-01-21 13:27] LABS: CALC OSMOLALITY 279 mosm/kg (275-300); CALCIUM 9.6 mg/dL (8.5-10.1); CARBON DIOXIDE 26.2 mmol/L (21.0-32.0); CHLORIDE - SERUM 100 mmol/L (98-107); GLUCOSE 139 mg/dL (74-106); POTASSIUM - SERUM 4.2 mmol/L (3.5-5.1); SODIUM 138 mmol/L (136-145); UREA NITROGEN 18 mg/dL (7-18); eGFR NON AFRICAN AMERICAN 58 mL/min (90-120)
[2021-01-21 13:41] LABS: ALBUMIN 3.5 g/dL (3.4-5.0); ALKALINE PHOSPHATASE 91 U/L (30-120); ALT (SGPT) 14 U/L (10-68); BILIRUBIN - TOTAL 0.25 mg/dL (0.2-1.3); LIPASE 41 U/L (73-393); TROPONIN-I < 0.017 ng/mL (0.000-0.060)
[2021-01-21 13:45] LABS: AMYLASE - SERUM 869 U/L (25-115)
[2021-01-21 15:21] LABS: BILIRUBIN NEGATIVE (NEGATIVE); KETONE NEGATIVE (NEGATIVE); NITRITE NEGATIVE (NEGATIVE); UROBILINOGEN NORMAL mg/dL (< 2)
[2021-01-21] MEDS ORDERED: LEVOFLOXACIN500 MG PO (15:41)
[2021-01-21] MEDS ORDERED: FLAGYL500 MG PO (15:41)
[2021-01-21] MEDS ORDERED: ZOFRAN ODT4 MG/UDTAB PO (15:41)
[2021-01-21 16:04] VITALS: BP 130/83
== END 2021-01-21 16:05 | disposition home or self-care (01) ==
LOC: D.ER 12:26
PROVIDERS: Family Medicine
DX: K52.9 Noninfective gastroenteritis and colitis, unspecified (principal); R56.9 Unspecified convulsions